=== PATIENT | female | born 1980 | race African-American/Black ===

== ENCOUNTER 2017-06-25 13:44 | Inpatient (IN) | payer BC ==
[~2017-06-25] VITALS: Ht 160 cm; Wt 66.7 kg
[2017-06-25] MEDS ORDERED: ONDANSETRON PF 4 MG/2 ML VIAL. IV ONE (14:15)
[2017-06-25] MEDS ORDERED: FAMOTIDINE 20 MG/2 ML VIAL IVP ONE (14:15)
[2017-06-25] MEDS ORDERED: IV NORMAL SALINE 1000ML BAG 1,000 ML IV ONE ×2 (14:15→15:15)
[2017-06-25] MEDS ORDERED: ACETAMINOPHEN 500 MG TABLET PO ONE ×2 (14:30→15:00)
[2017-06-25 14:38] LABS: BILIRUBIN,URINE SMALL (NEG); GLUCOSE,URINE NEGATIVE (NEG); NITRITE,URINE NEGATIVE (NEG); PROTEIN,URINE >=300 mg/dL (NEG-TRACE)
[2017-06-25 14:46] LABS: BASO % 0 % (0-3); EOS % 0 % (0-3); HEMATOCRIT 41.3 % (36.0-47.0); HEMOGLOBIN 13.7 g/dL (12.0-15.5); LYMPH # 1.1 x10^3/uL (1.0-4.8); LYMPH % 8 % (24-48); MEAN CORPUSCULAR HEMOGLOBIN 27 pg (25-35); MEAN CORPUSCULAR HGB CONC 33 g/dL (31-37); MEAN CORPUSCULAR VOLUME 82 fL (79-100); MONO % 13 % (0-9); NEUT % 79 % (31-73); PLATELET COUNT 255 x10^3/uL (140-400); RED BLOOD COUNT 5.04 x10^6/uL (3.50-5.40); RED CELL DISTRIBUTION WIDTH 13.9 % (11.5-14.5); WHITE BLOOD COUNT 14.1 x10^3/uL (4.0-11.0)
[2017-06-25 14:51] LABS: BACTERIA,URINE MANY /HPF (0-FEW); RBC,URINE RARE /HPF (0-2); SQUAMOUS EPITHELIAL CELL,UR MANY /LPF
[2017-06-25 14:58] LABS: OBC FLU VALID
[2017-06-25 14:59] LABS: ALBUMIN 3.5 g/dL (3.4-5.0); ALBUMIN/GLOBULIN RATIO 0.7 (1.0-1.7); CALCIUM 8.7 mg/dL (8.5-10.1); CREATININE 1.2 mg/dL (0.6-1.0); GFR 60.8; TOTAL BILIRUBIN 0.6 mg/dL (0.2-1.0); TOTAL PROTEIN 8.6 g/dL (6.4-8.2)
[2017-06-25 15:00] LABS: POTASSIUM 2.9 mmol/L (3.5-5.1)
[2017-06-25] MEDS ORDERED: IBUPROFEN 800 MG TABLET. PO ONE (15:00)
[2017-06-25 15:12] LABS: PLT ESTIMATE ADEQUATE (ADEQUATE); TOXIC GRANULATION SLIGHT; TOXIC VACUOLATION MOD
--- NOTE | 2017-06-25 15:14 | PHYS DOC ---
Past Medical History Past Medical History: No Pertinent History Past Surgical History: , Other Additional Past Surgical Histo: BREAST BIOPSY Alcohol Use: None Drug Use: None Adult General Chief Complaint Chief Complaint: GENERALIZED BODY ACHES HPI HPI Patient is a 37 year old female with no significant medical history who presents today complaining of generalized body aches, patient states she's had diarrhea for 3 days, generalized lower abdominal pain, and vomited once 3 days ago. She is also complaining of subjective fevers. Review of Systems Review of Systems Constitutional: Fever and generalized body aches Eyes: Denies change in visual acuity, redness, or eye pain [] HENT: Denies nasal congestion or sore throat [] Respiratory: Denies cough or shortness of breath [] Cardiovascular: No additional information not addressed in HPI [] GI: Generalized lower abdominal pain nausea vomiting and diarrhea : Denies dysuria or hematuria [] Musculoskeletal: Denies back pain or joint pain [] Integument: Denies rash or skin lesions [] Neurologic: Denies headache, focal weakness or sensory changes [] All other systems were reviewed and found to be within normal limits, except as documented in this note. Current Medications Current Medications Current Medications Medications (Trade) Dose Ordered Sig/Ishaan Start Time Stop Time Status Last Admin Dose Admin Acetaminophen (Tylenol) 1,000 mg 1X ONCE 06/25/17 15:00 06/25/17 15:01 DC Famotidine (Pepcid Vial) 20 mg 1X ONCE 06/25/17 14:15 06/25/17 14:32 DC 06/25/17 14:37 20 MG Fentanyl Citrate (Fentanyl 2ml Vial) 50 mcg PRN Q30MIN PRN 06/25/17 19:30 06/25/17 19:36 50 MCG Ibuprofen (Motrin) 800 mg 1X ONCE 06/25/17 15:00 06/25/17 15:01 DC 06/25/17 15:00 800 MG Info (Do NOT chart on this entry -- for MONITORING) 1 each PRN DAILY PRN 06/25/17 15:15 06/27/17 15:14 Iohexol (Omnipaque 300 Mg/ml) 75 ml 1X ONCE 06/25/17 15:15 06/25/17 15:16 DC 06/25/17 15:58 75 ML Lidocaine HCl (Xylocaine-Mpf 1% Vial) 2 ml STK-MED ONCE 06/25/17 16:25 06/25/17 16:26 DC Morphine Sulfate 2 mg PRN Q2HR PRN 06/25/17 20:15 06/26/17 20:14 Ondansetron HCl (Zofran) 4 mg PRN Q8HRS PRN 06/25/17 20:15 06/26/17 20:14 Piperacillin Sod/ Tazobactam Sod (Zosyn Per Pharmacy) 1 each PRN DAILY PRN 06/25/17 20:15 UNV Piperacillin Sod/ Tazobactam Sod (Zosyn) 3.375 gm ONCE ONCE 06/25/17 20:30 06/25/17 20:31 DC Potassium Chloride (KCl Oral Soln) 40 meq 1X ONCE 06/25/17 15:15 06/25/17 15:16 DC 06/25/17 15:33 40 MEQ Sodium Chloride 1,000 ml @ 100 mls/hr Q10H 06/25/17 20:13 06/26/17 20:12 Sodium Chloride (NORMAL SALINE FLUSH for STERILE FIELD) 10 ml STK-MED ONCE 06/25/17 16:33 06/25/17 16:34 DC Vancomycin HCl (Vanco Per Pharmacy) 1 each PRN DAILY PRN 06/25/17 20:15 UNV Vancomycin HCl 1.75 gm/Dextrose/ Sodium Chloride 500 ml @ 250 mls/hr 1X ONCE 06/25/17 20:30 06/25/17 22:29 Allergies Allergies Allergies Coded Allergies Type Severity Reaction Last Updated Verified No Known Drug Allergies 06/25/17 No Physical Exam Physical Exam Constitutional: Well developed, well nourished, ill appearing patient. HENT: Normocephalic, atraumatic, bilateral external ears normal, oropharynx moist, no oral exudates, nose normal. [] Eyes: PERRLA, EOMI, conjunctiva normal, no discharge. [] Neck: Normal range of motion, no tenderness, supple, no stridor. [] Cardiovascular:Heart rate regular rhythm, no murmur [] Lungs & Thorax: Bilateral breath sounds clear to auscultation [] Abdomen: Bowel sounds normal, soft, no tenderness, no masses, no pulsatile masses. [] Skin: Warm, dry, no erythema, no rash. [] Back: No tenderness, no CVA tenderness. [] Extremities: No tenderness, no cyanosis, no clubbing, ROM intact, no edema. [] Neurologic: Alert and oriented X 3, normal motor function, normal sensory function, no focal deficits noted. [] Psychologic: Affect normal, judgement normal, mood normal. [] Current Patient Data Vital Signs Vital Signs Date Time Temp Pulse Resp B/P (MAP) Pulse Ox O2 Delivery O2 Flow Rate FiO2 06/25/17 19:36 17 100 Room Air 06/25/17 19:34 70 111/59 (76) 06/25/17 18:30 98.1 98.1 Lab Values Laboratory Tests Test 06/25/17 14:00 06/25/17 14:20 06/25/17 14:28 06/25/17 14:35 Urine Collection Type Unknown Urine Color [place] Urine Clarity Cloudy Urine pH 6.0 Urine Specific [place] >=1.030 Urine Protein >=300 mg/dL (NEG-TRACE) Urine Glucose (UA) Negative mg/dL (NEG) Urine Ketones (Stick) >=80 mg/dL (NEG) Urine Blood Moderate (NEG) Urine Nitrite Negative (NEG) Urine Bilirubin Small (NEG) Urine Urobilinogen Dipstick 2.0 mg/dL (0.2 mg/dL) Urine Leukocyte Esterase Small (NEG) Urine RBC Rare /HPF (0-2) Urine WBC 11-20 /HPF (0-4) Urine Squamous Epithelial Cells Many /LPF Urine Bacteria Many /HPF (0-FEW) Urine Mucus Marked /LPF Influenza Type A Antigen Negative (NEGATIVE) Influenza Type B Antigen Negative (NEGATIVE) POC Urine HCG, Qualitative Hcg negative (Negative) White Blood Count 14.1 x10^3/uL (4.0-11.0) H Red Blood Count 5.04 x10^6/uL (3.50-5.40) Hemoglobin 13.7 g/dL (12.0-15.5) Hematocrit 41.3 % (36.0-47.0) Mean Corpuscular Volume 82 fL (79-100) Mean Corpuscular Hemoglobin 27 pg (25-35) Mean Corpuscular Hemoglobin Concent 33 g/dL (31-37) Red Cell Distribution Width 13.9 % (11.5-14.5) Platelet Count 255 x10^3/uL (140-400) Neutrophils (%) (Auto) 79 % (31-73) H Lymphocytes (%) (Auto) 8 % (24-48) L Monocytes (%) (Auto) 13 % (0-9) H Eosinophils (%) (Auto) 0 % (0-3) Basophils (%) (Auto) 0 % (0-3) Neutrophils # (Auto) 11.1 x10^3uL (1.8-7.7) H Lymphocytes # (Auto) 1.1 x10^3/uL (1.0-4.8) Monocytes # (Auto) 1.9 x10^3/uL (0.0-1.1) H Eosinophils # (Auto) 0.0 x10^3/uL (0.0-0.7) Basophils # (Auto) 0.0 x10^3/uL (0.0-0.2) Segmented Neutrophils % 58 % (35-66) Band Neutrophils % 21 % (0-9) H Lymphocytes % 9 % (24-48) L Atypical Lymphocytes % (Manual) 2 % (0-0) H Monocytes % 10 % (0-10) Toxic Granulation Slight Toxic Vacuolation Mod Platelet Estimate Adequate (ADEQUATE) Sodium Level 133 mmol/L (136-145) L Potassium Level 2.9 mmol/L (3.5-5.1) *L Chloride Level 96 mmol/L (98-107) L Carbon Dioxide Level 25 mmol/L (21-32) Anion Gap 12 (6-14) Blood Urea Nitrogen 7 mg/dL (7-20) Creatinine 1.2 mg/dL (0.6-1.0) H Estimated GFR (Cockcroft-Gault) 60.8 BUN/Creatinine Ratio 6 (6-20) Glucose Level 144 mg/dL (70-99) H Lactic Acid Level 1.2 mmol/L (0.4-2.0) Calcium Level 8.7 mg/dL (8.5-10.1) Total Bilirubin 0.6 mg/dL (0.2-1.0) Aspartate Amino Transferase (AST) 69 U/L (15-37) H Alanine Aminotransferase (ALT) 76 U/L (14-59) H Alkaline Phosphatase 56 U/L (46-116) Total Protein 8.6 g/dL (6.4-8.2) H Albumin 3.5 g/dL (3.4-5.0) Albumin/Globulin Ratio 0.7 (1.0-1.7) L Lipase 135 U/L (73-393) Test 06/25/17 16:30 CSF Tube Number 4 CSF Volume 1.2 CSF Color Colorless CSF Clarity Clear CSF WBC 1 CSF RBC 15 CSF Glucose 92 mg/dL (37-70) H CSF Total Protein 26.1 mg/dL (15.0-45.0) Laboratory Tests 06/25/17 14:35 Laboratory Tests 06/25/17 14:35 EKG EKG [] Radiology/Procedures Radiology/Procedures []PROCEDURE: ACUTE ABDOMEN SERIES Single view chest and supine and upright AP views of the abdomen 06/25/2017 Clinical indication: Vomiting, diarrhea and lower abdominal leg pain. Comparison: None. Findings: Cardiac and mediastinal silhouettes are unremarkable. No pleural effusion, pneumothorax or focal consolidation. There is a nonobstructive bowel gas pattern was distal colonic gas and stool. No evidence of pneumoperitoneum or portal venous gas. Impression: 1. No acute cardiopulmonary abnormality. 2. No radiographic evidence of bowel obstruction or pneumoperitoneum. DICTATED and SIGNED BY: NAYA URBAN MD DATE: 06/25/17 1508 CC: RONDA OH APRN; NO PCP; NON,STAFF ~ Course & Med Decision Making Course & Med Decision Making Pertinent Labs and Imaging studies reviewed. (See chart for details) Patient is in the ED with complaints of generalized abdominal pain, nausea vomiting body aches and subjective fevers. Temperature on arrival to the ED is 103.1 with a heart rate 125. Blood pressure 139/76. O2 sats 98% on room air. CBC with a WBC of 14.1 with a left shift. CMP with potassium of 2.9. Patient was given 40 meq potassium replacement in the ED. Patient was complaining off a headache in the ED. Considering her temperature of 103.1, consulted with Dr. Combs for possible spinal tap. 15:55 Dr. Comsb took over patient's care. Dragon Disclaimer Dragon Disclaimer This electronic medical record was generated, in whole or in part, using a voice recognition dictation system. Departure Departure Impression: Primary Impression: Hypokalemia Additional Impressions: Nausea and vomiting Diarrhea Abdominal pain Referrals: NO PCP (PCP) Lumbar Puncture Lumbar Indication: Suspected meningitis Consent: Consent was obtained Procedure: The patient was placed in the left lateral decubitus position and the appropriate landmarks were identified. The area was prepped and draped in the usual sterile fashion. Anesthesia was obtained using 1% lidocaine. A spinal needle was inserted at the L4/L5. The stylet was then replaced and the needle was withdrawn. A sterile dressing was placed over the site and the patient was placed in the supine position for 60 min after procedure. The patient tolerated the procedure well. Complications: none. Assessment/Plan Assessment/Plan 29-year-old female initially seen by our advanced practice provider Ronda signed out to me with plans to perform lumbar puncture and further evaluation. The patient arrived with generalized bodyaches fatigue fever diarrhea with vomiting and a severe headache. Upon arrival she was tachycardic and febrile. She was given IV fluids ibuprofen and acetaminophen in the emergency department. Prior to my examination the patient has had blood work which shows a leukocytosis without an obvious source. Influenza negative. Abdomen CT with IV contrast obtained. Lumbar puncture performed which was not suggestive of acute bacterial meningitis. Chest x-ray obtained along with MRI of the brain. Initially I was given order a CT scan of the head however unfortunately because the patient had artery received IV contrast we elected to do an MRI of the brain instead. 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 Chest x-ray unremarkable. MRI of the brain unremarkable. The patient was then admitted after being given IV antibiotics to follow-up on blood cultures and to monitor her in the hospital. Problems: Problem Qualifiers Additional Impressions: Nausea and vomiting Vomiting type: unspecified Vomiting Intractability: non-intractable Qualified Codes: R11.2 - Nausea with vomiting, unspecified Diarrhea Diarrhea type: unspecified type Qualified Codes: R19.7 - Diarrhea, unspecified Abdominal pain Abdominal location: generalized Qualified Codes: R10.84 - Generalized abdominal pain RONDA OH APRN Jun 25, 2017 15:14 RICK COMBS MD Jun 25, 2017 20:59
[2017-06-25] MEDS ORDERED: POTASSIUM CHLORIDE 20 MEQ/15 ML ORAL LIQUID. PO ONE (15:15)
[2017-06-25] MEDS ORDERED: CONTRAST GIVEN MC PRN (15:15)
[2017-06-25] MEDS ORDERED: IOHEXOL 300 MG/ML 100ML VIAL. IV ONE (15:15)
[2017-06-25] MEDS ORDERED: fentaNYL PF VIAL 100 MCG/2 ML VIAL IV ONE ×2 (15:30→16:15)
--- NOTE | 2017-06-25 16:22 | RAD ---
PQRS Compliance Statement: One or more of the following individualized dose reduction techniques were utilized for this examination: 1. Automated exposure control 2. Adjustment of the mA and/or kV according to patient size 3. Use of iterative reconstruction technique CT abdomen/pelvis with contrast June 25, 2017 INDICATION: Abdominal pain with diarrhea. COMPARISON: None available TECHNIQUE: Multiple axial CT images of abdomen and pelvis were obtained after the intravenous demonstration of 75 cc Omnipaque 300. Coronal and sagittal reformats are provided. FINDINGS: Lung bases are clear. Heart size is within normal limits. The liver, spleen, bilateral adrenal glands, pancreas and gallbladder are within normal limits. Abdominal aorta is normal in course and caliber. There is no pathologically enlarged lymph nodes in the abdomen or pelvis. There is no free fluid or free intraperitoneal air. Kidneys enhance symmetrically. There is no hydronephrosis. No suspicious renal mass. No renal calculi are identified. Small bowel appears mildly prominent and fluid-filled. No significant circumferential wall thickening. No pericolonic inflammatory changes are identified. A normal appendix is visualized. No inflammatory changes are identified in the right lower quadrant. Distal colon is decompressed. Stomach is normal in appearance. No suspicious adnexal masses are identified. Uterus is within normal limits. Follicular changes are identified in the ovaries. Urinary bladder is within normal limits given degree of distention. No suspicious osseous abnormalities are identified. IMPRESSION: Mild distention of small bowel loops which appear predominantly fluid-filled. Findings may be seen in the setting of an enteritis. Proximal colon appears fluid-filled as well. No definite surrounding inflammatory changes are identified. No evidence for bowel obstruction. Electronically signed by: Candice Carrasquillo MD (06/25/2017 4:19 PM) [facility]
[2017-06-25] MEDS ORDERED: LIDOCAINE 1% PF 2 ML VIAL. ONE (16:25)
[2017-06-25] MEDS ORDERED: 0.9 % SOD CHL for STERILE FIELD 10 ML DISP.SYRIN. ONE (16:33)
[2017-06-25 17:06] LABS: CSF PROTEIN 26.1 mg/dL (15.0-45.0)
[2017-06-25 17:40] LABS: CSF CLARITY CLEAR; CSF COLOR COLORLESS
--- NOTE | 2017-06-25 19:34 | EKG ---
[facility] [address] [place] [address] Test Date: 2017-06-25 Test Time: 18:42:57 Pat Name: RADHA DUMONT Department: Room: Gender: F Cotton Baler: : 1980 Requested By: RICK JENNINGS Order Number: [id number] Reading MD: Measurements Intervals [place] Rate: 74 P: 48 DC: 156 QRS: 23 QRSD: 76 T: 15 QT: 398 QTc: 447 Interpretive Statements SINUS RHYTHM QRS(T) CONTOUR ABNORMALITY CONSIDER ANTEROLATERAL MYOCARDIAL DAMAGE POSSIBLY ABNORMAL ECG RI6.01 No previous ECG available for comparison
[2017-06-25] MEDS: fentaNYL PF VIAL 100 MCG/2 ML VIAL IV PRN ×2 (19:36→23:02)
[2017-06-25] MEDS ORDERED: PIP/TAZO PER PHARMACY MC PRN (20:15)
[2017-06-25] MEDS ORDERED: ONDANSETRON PF 4 MG/2 ML VIAL. IV PRN (20:15)
[2017-06-25] MEDS ORDERED: PIPERACILLIN/TAZO IV Push 3.375 GM VIAL. IVP ONE (20:30)
[2017-06-25] MEDS ORDERED: VANCOMYCIN 1.75 GM in IV DEXTROSE 5 %-0.2 % NACL 500 ML IV ONE (20:30)
--- NOTE | 2017-06-25 20:34 | RAD ---
MRI brain without contrast 06/25/2017 CLINICAL INDICATION: Headache and fever, body aches. COMPARISON: None. TECHNIQUE: Multisequence multiplanar MR imaging of the brain was performed without contrast. FINDINGS: Ventricles and subarachnoid spaces are normal in size and configuration for age. No midline shift. No acute intracranial hemorrhage. The midline structures are intact. No suspicious brain parenchymal abnormality. Diffusion-weighted images are not indicative of acute or recent infarct. The central intracranial flow voids are present. The globes and orbits are unremarkable. IMPRESSION: Unremarkable noncontrast MRI brain. Electronically signed by: Jose A Velazquez MD (06/25/2017 8:30 PM) [facility]
[2017-06-25] MEDS: VANCOMYCIN PER PHARMACY MC PRN (21:03)
[2017-06-25] MEDS: IV NORMAL SALINE 1000ML BAG 1,000 ML IV SCH (21:24)
[2017-06-25 23:00] VITALS: BP_SYST 103; BP_SYST 104; BP_DIAS 68; BP_DIAS 70
[2017-06-26] MEDS: fentaNYL PF VIAL 100 MCG/2 ML VIAL IV PRN (00:08)
[2017-06-26] MEDS: ZOLPIDEM 5 MG TABLET. PO PRN (01:26)
[2017-06-26] MEDS: MORPHINE SULFATE 2 MG/ML DISP.SYRIN. IV PRN ×2 (01:26→05:17)
[2017-06-26 03:00] VITALS: BP 101/61
[2017-06-26] MEDS: PIPERACILLIN/TAZO IV Push 3.375 GM VIAL. IVP SCH ×2 (05:15→14:26)
[2017-06-26 05:16] LABS: BASO % 0 % (0-3); EOS % 0 % (0-3); HEMATOCRIT 33.4 % (36.0-47.0); HEMOGLOBIN 11.4 g/dL (12.0-15.5); LYMPH # 1.6 x10^3/uL (1.0-4.8); LYMPH % 15 % (24-48); MEAN CORPUSCULAR HEMOGLOBIN 28 pg (25-35); MEAN CORPUSCULAR HGB CONC 34 g/dL (31-37); MEAN CORPUSCULAR VOLUME 82 fL (79-100); MONO % 17 % (0-9); NEUT % 68 % (31-73); PLATELET COUNT 201 x10^3/uL (140-400); RED BLOOD COUNT 4.08 x10^6/uL (3.50-5.40); RED CELL DISTRIBUTION WIDTH 14.4 % (11.5-14.5); WHITE BLOOD COUNT 10.5 x10^3/uL (4.0-11.0)
[2017-06-26 05:40] LABS: CREATININE 0.8 mg/dL (0.6-1.0); GFR 97.1; POTASSIUM 3.7 mmol/L (3.5-5.1)
[2017-06-26 07:00] VITALS: BP 98/54
--- NOTE | 2017-06-26 08:25 | PDOC1 ---
History and Physical Date of Admission Date of Admission DATE: 06/26/17 TIME: 08:19 Identification/Chief Complaint Chief Complaint fever, Problems: Source Source: Chart review, Patient History of Present Illness History of Present Illness Ms. Lee, is a 37 year old female with no significant medical history admitted from ER due to leukocytosis and impressive fever 103. She had complained of generalized body aches, improved this AM she has bitemporal headache, and headache and back pain last night, LP was done , looks clear. She previously had diarrhea for 3 days, with some abd pain and poor PO intake, that seems improved. She is tired this AM, has headache but feels better Past Medical History Cardiovascular: No pertinent hx Pulmonary: No pertinent hx GI: No pertinent hx Heme/Onc: No pertinent hx Hepatobiliary: No pertinent hx Psych: No pertinent hx Rheumatologic: No pertinent hx Family History Family History: Cancer Family History: Parent Social History Smoke: No ALCOHOL: none Drugs: None Current Problem List Problem List Problems Medical Problems: (1) Abdominal pain Status: Acute (2) Diarrhea Status: Acute (3) Hypokalemia Status: Acute (4) Nausea and vomiting Status: Acute Problems: Current Medications Current Medications Current Medications Sodium Chloride 1,000 ml @ 1,000 mls/hr 1X ONCE IV Last administered on 06/25 14:38; Start 06/25/17 at 14:15; Stop 06/25/17 at 15:14; Status DC Famotidine (Pepcid Vial) 20 mg 1X ONCE IVP Last administered on 06/25/17 14: 37; Start 06/25/17 at 14:15; Stop 06/25/17 at 14:32; Status DC Ondansetron HCl (Zofran) 4 mg 1X ONCE IV Last administered on 06/25/17 14:37 ; Start 06/25/17 at 14:15; Stop 06/25/17 at 14:32; Status DC Acetaminophen (Tylenol) 500 mg 1X ONCE PO Last administered on 06/25/17 14: 37; Start 06/25/17 at 14:30; Stop 06/25/17 at 14:32; Status DC Acetaminophen (Tylenol) 1,000 mg 1X ONCE PO ; Start 06/25/17 at 15:00; Stop 06/25/17 at 15:01; Status DC Ibuprofen (Motrin) 800 mg 1X ONCE PO Last administered on 06/25/17 15:00; Start 06/25/17 at 15:00; Stop 06/25/17 at 15:01; Status DC Iohexol (Omnipaque 300 Mg/ml) 75 ml 1X ONCE IV Last administered on 15:58; Start 06/25/17 at 15:15; Stop 06/25/17 at 15:16; Status DC Info (Do NOT chart on this entry -- for MONITORING) 1 each PRN DAILY PRN MC SEE COMMENTS; Start 06/25/17 at 15:15; Stop 06/27/17 at 15:14 Potassium Chloride (KCl Oral Soln) 40 meq 1X ONCE PO Last administered on 15:33; Start 06/25/17 at 15:15; Stop 06/25/17 at 15:16; Status DC Sodium Chloride 1,000 ml @ 1,000 mls/hr 1X ONCE IV Last administered on 06/25 18:20; Start 06/25/17 at 15:15; Stop 06/25/17 at 16:14; Status DC Fentanyl Citrate (Fentanyl 2ml Vial) 50 mcg 1X ONCE IV Last administered on 15:34; Start 06/25/17 at 15:30; Stop 06/25/17 at 15:31; Status DC Fentanyl Citrate (Fentanyl 2ml Vial) 50 mcg 1X ONCE IV Last administered on 16:16; Start 06/25/17 at 16:15; Stop 06/25/17 at 16:16; Status DC Lidocaine HCl (Xylocaine-Mpf 1% Vial) 2 ml STK-MED ONCE .ROUTE ; Start at 16:25; Stop 06/25/17 at 16:26; Status DC Sodium Chloride (NORMAL SALINE FLUSH for STERILE FIELD) 10 ml STK-MED ONCE .ROUTE ; Start 06/25/17 at 16:33; Stop 06/25/17 at 16:34; Status DC Fentanyl Citrate (Fentanyl 2ml Vial) 50 mcg PRN Q30MIN PRN IV SEVERE PAIN Last administered on 06/26/17 00:08; Start 06/25/17 at 19:30; Stop 06/26/17 at 00 :08; Status DC Piperacillin Sod/ Tazobactam Sod (Zosyn Per Pharmacy) 1 each PRN DAILY PRN MC SEE COMMENTS; Start 06/25/17 at 20:15 Vancomycin HCl (Vanco Per Pharmacy) 1 each PRN DAILY PRN MC SEE COMMENTS Last administered on 06/25/17 21:03; Start 06/25/17 at 20:15 Ondansetron HCl (Zofran) 4 mg PRN Q8HRS PRN IV NAUSEA/VOMITING; Start at 20:15; Stop 06/26/17 at 20:14 Morphine Sulfate 2 mg PRN Q2HR PRN IV PAIN Last administered on 06/26/17 05: 17; Start 06/25/17 at 20:15; Stop 06/26/17 at 20:14 Sodium Chloride 1,000 ml @ 100 mls/hr Q10H IV Last administered on 06/25/17 21:24; Start 06/25/17 at 20:13; Stop 06/26/17 at 20:12 Vancomycin HCl 1.75 gm/Dextrose/ Sodium Chloride 500 ml @ 250 mls/hr 1X ONCE IV Last administered on 06/25/17 21:26; Start 06/25/17 at 20:30; Stop 06/25 at 22:29; Status DC Piperacillin Sod/ Tazobactam Sod (Zosyn) 3.375 gm ONCE ONCE IVP Last administered on 06/25/17 21:22; Start 06/25/17 at 20:30; Stop 06/25/17 at 20 :31; Status DC Piperacillin Sod/ Tazobactam Sod (Zosyn) 3.375 gm Q6HRS IVP Last administered on 06/26/17 05:15; Start 06/26/17 at 06:00 Vancomycin HCl 1 gm/Sodium Chloride 500 ml @ 500 mls/hr Q24H IV ; Start at 21:00 Vancomycin HCl 1 each 1X ONCE MC ; Start 06/27/17 at 20:30; Stop 06/27/17 at 20:31 Potassium Chloride (Klor-Con) 20 meq DAILYWBKFT PO ; Start 06/26/17 at 08:00 Zolpidem Tartrate (Ambien) 5 mg PRN QHS PRN PO INSOMNIA Last administered on 01:26; Start 06/26/17 at 01:00 Allergies Allergies: Coded Allergies: No Known Drug Allergies (Unverified , 06/25/17) ROS General: YES: Chills, Night Sweats, Fatigue, Appetite, No: Malaise, Other PSYCHOLOGICAL ROS: No: Anxiety, Behavioral Disorder, Concentration difficultie , Decreased libido, Depression, Disorientation, Hallucinations, Hostility, Irritablity, Memory difficulties, Mood Swings, Obsessive thoughts, Physical abuse, Sexual abuse, Sleep disturbances, Suicidal ideation, Other Eyes: No Blurry vision, No Decreased vision, No Double vision, No Dry eyes, No Excessive tearing, No Eye Pain, No Itchy Eyes, No Loss of vision, No Photophobia , No Scotomata, No Uses contacts, No Uses glasses, No Other HEENT: No: Heacaches, Visual Changes, Hearing change, Nasal congestion, Nasal discharge, Oral lesions, Sinus pain, Sore Throat, Epistaxis, Sneezing, Snoring, Tinnitus, Vertigo, Vocal changes, Other Respiratory: No: Cough, Hemoptysis, Orthopnea, Pleuritic Pain, Shortness of breath, SOB with excertion, Sputum Changes, Stridor, Tachypnea, Wheezing, Other Cardiovascular: No Chest Pain, No Palpitations, No Orthopnea, No Paroxysmal Noc. Dyspnea, No Edema, No Lt Headedness, No Other Genitourinary: No Dysuria, No Frequency, No Incontinence, No Hematuria, No Retention, No Discharge, No Urgency, No Pain, No Flank Pain, No Other, No , No , No , No , No , No , No Musculoskeletal: No Gait Disturbance, No Joint Pain, No Joint Stiffness, No Joint Swelling, No Muscle Pain, No Muscular Weakness, No Pain In:, No Swelling In:, No Other Neurological: No Behavorial Changes, No Bowel/Bladder ControlChng, No Confusion , No Dizziness, No Gait Disturbance, No Headaches, No Impaired Coord/balance, No Memory Loss, No Numbness/Tingling, No Seizures, No Speech Problems, No Tremors, No Visual Changes, No Weakness, No Other Skin: No Dry Skin, No Eczema, No Hair Changes, No Lumps, No Mole Changes, No Mottling, No Nail Changes, No Pruritus, No Rash, No Skin Lesion Changes, No Other, No Acne Physical Exam General: Alert, Oriented X3, Cooperative, No acute distress HEENT: Atraumatic, PERRLA Lungs: Clear to auscultation, Normal air movement Heart: S1S2, no gallops, no murmurs Abdomen: Normal bowel sounds, Soft Rectal Exam: not examined Extremities: No clubbing, No edema Skin: No rashes, No significant lesion Neuro: Normal gait, Normal speech, Normal tone Psych/Mental Status: Mood NL Vitals Vitals Vital Signs Date Time Temp Pulse Resp B/P (MAP) Pulse Ox O2 Delivery O2 Flow Rate FiO2 06/26/17 05:47 97 Room Air 06/26/17 03:00 97.6 64 16 101/61 (74) 97.6 Labs Labs Laboratory Tests Test 06/25/17 14:00 06/25/17 14:20 06/25/17 14:28 06/25/17 14:35 Urine Collection Type Unknown Urine Color [place] Urine Clarity Cloudy Urine pH 6.0 Urine Specific [place] >=1.030 Urine Protein >=300 mg/dL (NEG-TRACE) Urine Glucose (UA) Negative mg/dL (NEG) Urine Ketones (Stick) >=80 mg/dL (NEG) Urine Blood Moderate (NEG) Urine Nitrite Negative (NEG) Urine Bilirubin Small (NEG) Urine Urobilinogen Dipstick 2.0 mg/dL (0.2 mg/dL) Urine Leukocyte Esterase Small (NEG) Urine RBC Rare /HPF (0-2) Urine WBC 11-20 /HPF (0-4) Urine Squamous Epithelial Cells Many /LPF Urine Bacteria Many /HPF (0-FEW) Urine Mucus Marked /LPF Influenza Type A Antigen Negative (NEGATIVE) Influenza Type B Antigen Negative (NEGATIVE) Bedside Urine HCG, Qualitative Hcg negative (Negative) White Blood Count 14.1 x10^3/uL (4.0-11.0) Red Blood Count 5.04 x10^6/uL (3.50-5.40) Hemoglobin 13.7 g/dL (12.0-15.5) Hematocrit 41.3 % (36.0-47.0) Mean Corpuscular Volume 82 fL (79-100) Mean Corpuscular Hemoglobin 27 pg (25-35) Mean Corpuscular Hemoglobin Concent 33 g/dL (31-37) Red Cell Distribution Width 13.9 % (11.5-14.5) Platelet Count 255 x10^3/uL (140-400) Neutrophils (%) (Auto) 79 % (31-73) Lymphocytes (%) (Auto) 8 % (24-48) Monocytes (%) (Auto) 13 % (0-9) Eosinophils (%) (Auto) 0 % (0-3) Basophils (%) (Auto) 0 % (0-3) Neutrophils # (Auto) 11.1 x10^3uL (1.8-7.7) Lymphocytes # (Auto) 1.1 x10^3/uL (1.0-4.8) Monocytes # (Auto) 1.9 x10^3/uL (0.0-1.1) Eosinophils # (Auto) 0.0 x10^3/uL (0.0-0.7) Basophils # (Auto) 0.0 x10^3/uL (0.0-0.2) Segmented Neutrophils % 58 % (35-66) Band Neutrophils % 21 % (0-9) Lymphocytes % 9 % (24-48) Atypical Lymphocytes % (Manual) 2 % (0-0) Monocytes % 10 % (0-10) Toxic Granulation Slight Toxic Vacuolation Mod Platelet Estimate Adequate (ADEQUATE) Sodium Level 133 mmol/L (136-145) Potassium Level 2.9 mmol/L (3.5-5.1) Chloride Level 96 mmol/L (98-107) Carbon Dioxide Level 25 mmol/L (21-32) Anion Gap 12 (6-14) Blood Urea Nitrogen 7 mg/dL (7-20) Creatinine 1.2 mg/dL (0.6-1.0) Estimated GFR (Cockcroft-Gault) 60.8 BUN/Creatinine Ratio 6 (6-20) Glucose Level 144 mg/dL (70-99) Lactic Acid Level 1.2 mmol/L (0.4-2.0) Calcium Level 8.7 mg/dL (8.5-10.1) Total Bilirubin 0.6 mg/dL (0.2-1.0) Aspartate Amino Transf (AST/SGOT) 69 U/L (15-37) Alanine Aminotransferase (ALT/SGPT) 76 U/L (14-59) Alkaline Phosphatase 56 U/L (46-116) Total Protein 8.6 g/dL (6.4-8.2) Albumin 3.5 g/dL (3.4-5.0) Albumin/Globulin Ratio 0.7 (1.0-1.7) Lipase 135 U/L (73-393) Test 06/25/17 16:30 06/25/17 22:30 06/26/17 04:55 CSF Tube Number 4 CSF Volume 1.2 CSF Color Colorless CSF Clarity Clear CSF WBC 1 CSF RBC 15 CSF Glucose 92 mg/dL (37-70) CSF Total Protein 26.1 mg/dL (15.0-45.0) Lactic Acid Level 1.0 mmol/L (0.4-2.0) White Blood Count 10.5 x10^3/uL (4.0-11.0) Red Blood Count 4.08 x10^6/uL (3.50-5.40) Hemoglobin 11.4 g/dL (12.0-15.5) Hematocrit 33.4 % (36.0-47.0) Mean Corpuscular Volume 82 fL (79-100) Mean Corpuscular Hemoglobin 28 pg (25-35) Mean Corpuscular Hemoglobin Concent 34 g/dL (31-37) Red Cell Distribution Width 14.4 % (11.5-14.5) Platelet Count 201 x10^3/uL (140-400) Neutrophils (%) (Auto) 68 % (31-73) Lymphocytes (%) (Auto) 15 % (24-48) Monocytes (%) (Auto) 17 % (0-9) Eosinophils (%) (Auto) 0 % (0-3) Basophils (%) (Auto) 0 % (0-3) Neutrophils # (Auto) 7.1 x10^3uL (1.8-7.7) Lymphocytes # (Auto) 1.6 x10^3/uL (1.0-4.8) Monocytes # (Auto) 1.8 x10^3/uL (0.0-1.1) Eosinophils # (Auto) 0.0 x10^3/uL (0.0-0.7) Basophils # (Auto) 0.0 x10^3/uL (0.0-0.2) Sodium Level 140 mmol/L (136-145) Potassium Level 3.7 mmol/L (3.5-5.1) Chloride Level 106 mmol/L (98-107) Carbon Dioxide Level 26 mmol/L (21-32) Anion Gap 8 (6-14) Blood Urea Nitrogen 5 mg/dL (7-20) Creatinine 0.8 mg/dL (0.6-1.0) Estimated GFR (Cockcroft-Gault) 97.1 Glucose Level 94 mg/dL (70-99) Calcium Level 7.0 mg/dL (8.5-10.1) Laboratory Tests Test 06/25/17 14:00 06/25/17 14:20 06/25/17 14:28 06/25/17 14:35 Urine Collection Type Unknown Urine Color [place] Urine Clarity Cloudy Urine pH 6.0 Urine Specific [place] >=1.030 Urine Protein >=300 mg/dL (NEG-TRACE) Urine Glucose (UA) Negative mg/dL (NEG) Urine Ketones (Stick) >=80 mg/dL (NEG) Urine Blood Moderate (NEG) Urine Nitrite Negative (NEG) Urine Bilirubin Small (NEG) Urine Urobilinogen Dipstick 2.0 mg/dL (0.2 mg/dL) Urine Leukocyte Esterase Small (NEG) Urine RBC Rare /HPF (0-2) Urine WBC 11-20 /HPF (0-4) Urine Squamous Epithelial Cells Many /LPF Urine Bacteria Many /HPF (0-FEW) Urine Mucus Marked /LPF Influenza Type A Antigen Negative (NEGATIVE) Influenza Type B Antigen Negative (NEGATIVE) Bedside Urine HCG, Qualitative Hcg negative (Negative) White Blood Count 14.1 x10^3/uL (4.0-11.0) Red Blood Count 5.04 x10^6/uL (3.50-5.40) Hemoglobin 13.7 g/dL (12.0-15.5) Hematocrit 41.3 % (36.0-47.0) Mean Corpuscular Volume 82 fL (79-100) Mean Corpuscular Hemoglobin 27 pg (25-35) Mean Corpuscular Hemoglobin Concent 33 g/dL (31-37) Red Cell Distribution Width 13.9 % (11.5-14.5) Platelet Count 255 x10^3/uL (140-400) Neutrophils (%) (Auto) 79 % (31-73) Lymphocytes (%) (Auto) 8 % (24-48) Monocytes (%) (Auto) 13 % (0-9) Eosinophils (%) (Auto) 0 % (0-3) Basophils (%) (Auto) 0 % (0-3) Neutrophils # (Auto) 11.1 x10^3uL (1.8-7.7) Lymphocytes # (Auto) 1.1 x10^3/uL (1.0-4.8) Monocytes # (Auto) 1.9 x10^3/uL (0.0-1.1) Eosinophils # (Auto) 0.0 x10^3/uL (0.0-0.7) Basophils # (Auto) 0.0 x10^3/uL (0.0-0.2) Segmented Neutrophils % 58 % (35-66) Band Neutrophils % 21 % (0-9) Lymphocytes % 9 % (24-48) Atypical Lymphocytes % (Manual) 2 % (0-0) Monocytes % 10 % (0-10) Toxic Granulation Slight Toxic Vacuolation Mod Platelet Estimate Adequate (ADEQUATE) Sodium Level 133 mmol/L (136-145) Potassium Level 2.9 mmol/L (3.5-5.1) Chloride Level 96 mmol/L (98-107) Carbon Dioxide Level 25 mmol/L (21-32) Anion Gap 12 (6-14) Blood Urea Nitrogen 7 mg/dL (7-20) Creatinine 1.2 mg/dL (0.6-1.0) Estimated GFR (Cockcroft-Gault) 60.8 BUN/Creatinine Ratio 6 (6-20) Glucose Level 144 mg/dL (70-99) Lactic Acid Level 1.2 mmol/L (0.4-2.0) Calcium Level 8.7 mg/dL (8.5-10.1) Total Bilirubin 0.6 mg/dL (0.2-1.0) Aspartate Amino Transf (AST/SGOT) 69 U/L (15-37) Alanine Aminotransferase (ALT/SGPT) 76 U/L (14-59) Alkaline Phosphatase 56 U/L (46-116) Total Protein 8.6 g/dL (6.4-8.2) Albumin 3.5 g/dL (3.4-5.0) Albumin/Globulin Ratio 0.7 (1.0-1.7) Lipase 135 U/L (73-393) Test 06/25/17 16:30 06/25/17 22:30 06/26/17 04:55 CSF Tube Number 4 CSF Volume 1.2 CSF Color Colorless CSF Clarity Clear CSF WBC 1 CSF RBC 15 CSF Glucose 92 mg/dL (37-70) CSF Total Protein 26.1 mg/dL (15.0-45.0) Lactic Acid Level 1.0 mmol/L (0.4-2.0) White Blood Count 10.5 x10^3/uL (4.0-11.0) Red Blood Count 4.08 x10^6/uL (3.50-5.40) Hemoglobin 11.4 g/dL (12.0-15.5) Hematocrit 33.4 % (36.0-47.0) Mean Corpuscular Volume 82 fL (79-100) Mean Corpuscular Hemoglobin 28 pg (25-35) Mean Corpuscular Hemoglobin Concent 34 g/dL (31-37) Red Cell Distribution Width 14.4 % (11.5-14.5) Platelet Count 201 x10^3/uL (140-400) Neutrophils (%) (Auto) 68 % (31-73) Lymphocytes (%) (Auto) 15 % (24-48) Monocytes (%) (Auto) 17 % (0-9) Eosinophils (%) (Auto) 0 % (0-3) Basophils (%) (Auto) 0 % (0-3) Neutrophils # (Auto) 7.1 x10^3uL (1.8-7.7) Lymphocytes # (Auto) 1.6 x10^3/uL (1.0-4.8) Monocytes # (Auto) 1.8 x10^3/uL (0.0-1.1) Eosinophils # (Auto) 0.0 x10^3/uL (0.0-0.7) Basophils # (Auto) 0.0 x10^3/uL (0.0-0.2) Sodium Level 140 mmol/L (136-145) Potassium Level 3.7 mmol/L (3.5-5.1) Chloride Level 106 mmol/L (98-107) Carbon Dioxide Level 26 mmol/L (21-32) Anion Gap 8 (6-14) Blood Urea Nitrogen 5 mg/dL (7-20) Creatinine 0.8 mg/dL (0.6-1.0) Estimated GFR (Cockcroft-Gault) 97.1 Glucose Level 94 mg/dL (70-99) Calcium Level 7.0 mg/dL (8.5-10.1) VTE Prophylaxis Ordered VTE Prophylaxis Devices: No VTE Pharmacological Prophylaxi: Yes Assessment/Plan Assessment/Plan sepsis, NOS fever, leukocytosis, broad spectrum abx started, ID consult, blood cx pending, she feels much better this AM, vitals and white count have improved SANTIAGO PATEL MD Jun 26, 2017 08:25
[2017-06-26 08:31] LABS: ALBUMIN 2.5 g/dL (3.4-5.0); DIRECT BILIRUBIN 0.2 mg/dL (0.0-0.2); TOTAL BILIRUBIN 0.3 mg/dL (0.2-1.0)
--- NOTE | 2017-06-26 08:43 | RAD ---
2 view chest 06/25/2017 Clinical indication: Fever. Comparison: None. Findings: Cardiac and mediastinal silhouettes are unremarkable. No pleural effusion, pneumothorax or focal consolidation. Impression: No acute cardiopulmonary abnormality.
[2017-06-26] MEDS ORDERED: KETOROLAC 15 MG/ML VIAL. IV ONE (09:00)
[2017-06-26] MEDS: ENOXAPARIN 40 MG/0.4 ML SYRINGE. SQ SCH (10:02)
[2017-06-26] MEDS: IV NORMAL SALINE 1000ML BAG 1,000 ML IV SCH ×2 (10:03→16:13)
[2017-06-26] MEDS: POTASSIUM CHLORIDE 20 MEQ TABLET.ER. PO SCH (10:03)
[2017-06-26 11:00] VITALS: BP 110/54
[2017-06-26] MEDS: VANCOMYCIN PER PHARMACY MC PRN (11:39)
[2017-06-26] MEDS ORDERED: VANCOMYCIN IV SCH ×2 (12:00→21:00)
[2017-06-26] MEDS ORDERED: 1/2 NORMAL SALINE IV SCH ×2 (12:00→21:00)
--- NOTE | 2017-06-26 13:43 | PDOC ---
Infectious Disease Note Vital Sign Vital Signs Vital Signs Date Time Temp Pulse Resp B/P (MAP) Pulse Ox O2 Delivery O2 Flow Rate FiO2 06/26/17 11:00 97.9 66 16 110/54 (72) 95 Room Air 97.9 Labs Lab Laboratory Tests Test 06/25/17 14:00 06/25/17 14:20 06/25/17 14:28 06/25/17 14:35 Urine Collection Type Unknown Urine Color [place] Urine Clarity Cloudy Urine pH 6.0 Urine Specific [place] >=1.030 Urine Protein >=300 mg/dL (NEG-TRACE) Urine Glucose (UA) Negative mg/dL (NEG) Urine Ketones (Stick) >=80 mg/dL (NEG) Urine Blood Moderate (NEG) Urine Nitrite Negative (NEG) Urine Bilirubin Small (NEG) Urine Urobilinogen Dipstick 2.0 mg/dL (0.2 mg/dL) Urine Leukocyte Esterase Small (NEG) Urine RBC Rare /HPF (0-2) Urine WBC 11-20 /HPF (0-4) Urine Squamous Epithelial Cells Many /LPF Urine Bacteria Many /HPF (0-FEW) Urine Mucus Marked /LPF Influenza Type A Antigen Negative (NEGATIVE) Influenza Type B Antigen Negative (NEGATIVE) Bedside Urine HCG, Qualitative Hcg negative (Negative) White Blood Count 14.1 x10^3/uL (4.0-11.0) Red Blood Count 5.04 x10^6/uL (3.50-5.40) Hemoglobin 13.7 g/dL (12.0-15.5) Hematocrit 41.3 % (36.0-47.0) Mean Corpuscular Volume 82 fL (79-100) Mean Corpuscular Hemoglobin 27 pg (25-35) Mean Corpuscular Hemoglobin Concent 33 g/dL (31-37) Red Cell Distribution Width 13.9 % (11.5-14.5) Platelet Count 255 x10^3/uL (140-400) Neutrophils (%) (Auto) 79 % (31-73) Lymphocytes (%) (Auto) 8 % (24-48) Monocytes (%) (Auto) 13 % (0-9) Eosinophils (%) (Auto) 0 % (0-3) Basophils (%) (Auto) 0 % (0-3) Neutrophils # (Auto) 11.1 x10^3uL (1.8-7.7) Lymphocytes # (Auto) 1.1 x10^3/uL (1.0-4.8) Monocytes # (Auto) 1.9 x10^3/uL (0.0-1.1) Eosinophils # (Auto) 0.0 x10^3/uL (0.0-0.7) Basophils # (Auto) 0.0 x10^3/uL (0.0-0.2) Segmented Neutrophils % 58 % (35-66) Band Neutrophils % 21 % (0-9) Lymphocytes % 9 % (24-48) Atypical Lymphocytes % (Manual) 2 % (0-0) Monocytes % 10 % (0-10) Toxic Granulation Slight Toxic Vacuolation Mod Platelet Estimate Adequate (ADEQUATE) Sodium Level 133 mmol/L (136-145) Potassium Level 2.9 mmol/L (3.5-5.1) Chloride Level 96 mmol/L (98-107) Carbon Dioxide Level 25 mmol/L (21-32) Anion Gap 12 (6-14) Blood Urea Nitrogen 7 mg/dL (7-20) Creatinine 1.2 mg/dL (0.6-1.0) Estimated GFR (Cockcroft-Gault) 60.8 BUN/Creatinine Ratio 6 (6-20) Glucose Level 144 mg/dL (70-99) Lactic Acid Level 1.2 mmol/L (0.4-2.0) Calcium Level 8.7 mg/dL (8.5-10.1) Total Bilirubin 0.6 mg/dL (0.2-1.0) Aspartate Amino Transf (AST/SGOT) 69 U/L (15-37) Alanine Aminotransferase (ALT/SGPT) 76 U/L (14-59) Alkaline Phosphatase 56 U/L (46-116) Total Protein 8.6 g/dL (6.4-8.2) Albumin 3.5 g/dL (3.4-5.0) Albumin/Globulin Ratio 0.7 (1.0-1.7) Lipase 135 U/L (73-393) Test 06/25/17 16:30 06/25/17 22:30 06/26/17 04:55 CSF Tube Number 4 CSF Volume 1.2 CSF Color Colorless CSF Clarity Clear CSF WBC 1 CSF RBC 15 CSF Glucose 92 mg/dL (37-70) CSF Total Protein 26.1 mg/dL (15.0-45.0) Lactic Acid Level 1.0 mmol/L (0.4-2.0) White Blood Count 10.5 x10^3/uL (4.0-11.0) Red Blood Count 4.08 x10^6/uL (3.50-5.40) Hemoglobin 11.4 g/dL (12.0-15.5) Hematocrit 33.4 % (36.0-47.0) Mean Corpuscular Volume 82 fL (79-100) Mean Corpuscular Hemoglobin 28 pg (25-35) Mean Corpuscular Hemoglobin Concent 34 g/dL (31-37) Red Cell Distribution Width 14.4 % (11.5-14.5) Platelet Count 201 x10^3/uL (140-400) Neutrophils (%) (Auto) 68 % (31-73) Lymphocytes (%) (Auto) 15 % (24-48) Monocytes (%) (Auto) 17 % (0-9) Eosinophils (%) (Auto) 0 % (0-3) Basophils (%) (Auto) 0 % (0-3) Neutrophils # (Auto) 7.1 x10^3uL (1.8-7.7) Lymphocytes # (Auto) 1.6 x10^3/uL (1.0-4.8) Monocytes # (Auto) 1.8 x10^3/uL (0.0-1.1) Eosinophils # (Auto) 0.0 x10^3/uL (0.0-0.7) Basophils # (Auto) 0.0 x10^3/uL (0.0-0.2) Sodium Level 140 mmol/L (136-145) Potassium Level 3.7 mmol/L (3.5-5.1) Chloride Level 106 mmol/L (98-107) Carbon Dioxide Level 26 mmol/L (21-32) Anion Gap 8 (6-14) Blood Urea Nitrogen 5 mg/dL (7-20) Creatinine 0.8 mg/dL (0.6-1.0) Estimated GFR (Cockcroft-Gault) 97.1 Glucose Level 94 mg/dL (70-99) Calcium Level 7.0 mg/dL (8.5-10.1) Total Bilirubin 0.3 mg/dL (0.2-1.0) Direct Bilirubin 0.2 mg/dL (0.0-0.2) Aspartate Amino Transf (AST/SGOT) 35 U/L (15-37) Alanine Aminotransferase (ALT/SGPT) 51 U/L (14-59) Alkaline Phosphatase 39 U/L (46-116) Total Protein 6.0 g/dL (6.4-8.2) Albumin 2.5 g/dL (3.4-5.0) Objective Assessment Fever Leukocytosis Headache - s/p LP: CSF clear colorless, WBC 1, glu 92, T protein 26.1 - noncontrast MRI hillary unremarkable Herpetic rash perirectal/gluteal area h/o HSV Plan Plan of Care Clinically improving, continue vanc and Zosyn f/u BC Monitor temp, WBC and renal function Supportive care Thank you RIC LEMA APRN Jun 26, 2017 13:43
[2017-06-26 15:00] VITALS: BP 109/76
[2017-06-26] MEDS: valACYclovir 500 MG TABLET. PO SCH ×2 (17:37→22:45)
[2017-06-26] MEDS: BUTALB/APAP/CAFEIN 50/325/40MG TABLET. PO PRN (17:39)
[2017-06-26] MEDS: KETOROLAC 30 MG/ML INJ. IV PRN (19:02)
[2017-06-26] MEDS ORDERED: DEXTROSE 5% IV SCH (22:00)
[2017-06-26] MEDS ORDERED: ACYCLOVIR SODIUM IV SCH (22:00)
[2017-06-26] MEDS: LACTOBACILLUS RHAMNOSUS GG 1 CAPSULE. PO SCH (22:08)
[2017-06-26] MEDS: HYDROcodone/APAP 5/325MG 1 TAB TABLET PO PRN (22:45)
--- NOTE | 2017-06-26 22:56 | CONS ---
DATE OF CONSULTATION: 06/25/2017 DICTATING PHYSICIAN: Noé Phelps APRN. REFERRING PHYSICIAN: Dr. Edward. REASON FOR CONSULTATION: Fever. HISTORY OF PRESENT ILLNESS: This patient is a pleasant 37-year-old -[place] female who presented with a 3-day history of worsening pounding type headaches, generalized body aches and fever. She took Raya-Ravenel Plus and Tylenol with some relief. She has a history of headaches usually resolved with ibuprofen. However, these headaches were different in nature and in intensity. She developed a brief period of dry heaves after trying to eat along with diarrhea that has since resolved. She denies dizziness, confusion, visual change or neck stiffness. Two days following the onset of symptoms, she developed a perirectal/gluteal soreness for which she attributed to shaking from bouts of diarrhea. On arrival to the ER, she had a temperature of 103.1 with an elevated white blood cell count of 14,100. She underwent a lumbar puncture. CSF was clear, colorless with wbc's 1, rbc's 15, glucose 92 and total protein 26.1. A noncontrast brain MRI was unremarkable. She is currently on vancomycin and Zosyn. The patient reports feeling better. Her headache is almost gone. She has occasional chill without body aches or fever within the last 24 hours. The patient reports having history of herpes simplex over 10 years ago. She has been in a 2-year monogamous relationship with her live-in boyfriend. Denies other STDs. She has a history of a negative HIV. She denies exposure to ill contacts. Denies recent antibiotics or traveling. She does not have any pets. Denies sinus/nasal congestion or sore throat. Denies cough, shortness of air or chest discomfort. Denies abdominal pain, dysuria, frequency or urgency. PAST MEDICAL HISTORY: Herpes simplex. PAST SURGICAL HISTORY: section. SOCIAL HISTORY: The patient is single. She lives at home with her boyfriend. 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 FAMILY HISTORY: Noncontributory. ALLERGIES: No known drug allergies. MEDICATIONS: Vancomycin and Zosyn. Other medications are available and have been reviewed on the MAR. PHYSICAL EXAMINATION: GENERAL: -[place] female lying down in no apparent distress. VITAL SIGNS: Temperature is 97.9, T-max 103.1, blood pressure 110/54, heart rate 66, respiratory rate 16, pulse oximetry 95% on room air, weight 147 pounds and BMI 26. HEENT: Pupils equally round and reactive. Normal conjunctivae. Oral mucosa is pink and moist. No lesions seen. NECK: Supple. No nuchal rigidity or adenopathy appreciated. CHEST: Lungs clear to auscultation. HEART: Normal S1 and S2. ABDOMEN: Nondistended. Bowel sounds active. Soft and nontender. EXTREMITIES: No gross edema or cyanosis. SKIN: Located on the perirectal gluteal area are cluster of fluid filled blisters with mild erythema and warmth. NEUROLOGICAL: Alert and 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. Normal gait and balance. Moves all extremities. LABORATORY DATA: WBC 10.5 from 14.1 on admission; hemoglobin 11.4 and platelet count 201,000. Electrolytes are unremarkable. Creatinine 0.8, BUN 5 and glucose 94. Lactic acid 1.0. Total bilirubin 0.3, AST 35, ALT 51, albumin 2.5 and prolactin 18.3. Urinalysis positive for wbc's, leukocyte esterase, many squamous epithelial cells and bacteria. Urine hCG negative. Lumbar puncture per HPI. Influenza screen negative. Blood cultures negative to date. CSF Gram stain shows no organisms. RADIOLOGICAL DATA: Brain MRI unremarkable. Abdominal/pelvis CT showed mild distention of small bowel loops, which appear predominantly fluid filled. No definite surrounding inflammatory changes identified or evidence of bowel obstruction. Chest x-ray shows no pleural effusion, pneumothorax or focal consolidation. IMPRESSION: 1. Fever. 2. Leukocytosis. 3. Headache, status post lumbar puncture - normal. 4. Hepatic type rash in perirectal/gluteal area. 5. History of herpes simplex virus. PLAN: The patient is clinically improving. Symptoms likely related to viral syndrome. We will discontinue vancomycin and Zosyn. Check HCV antibody and PCR and add Valtrex. Verbal consent for HIV testing obtained. We will also check for syphilis and hepatitis. Monitor WBC and temperature. Supportive care. Thank you, Dr. Edward for asking us to participate in this patient's care. Should you have further questions or concerns, please call. The patient seen and examined and plan of care implemented by Dr. Aiden Maier. AIDEN MAIER MD DR: NANCY/helen JOB#: [id number] / [id number]
[2017-06-26 23:10] VITALS: BP 112/77
[2017-06-27 03:10] VITALS: BP 120/72
[2017-06-27] MEDS: HYDROcodone/APAP 5/325MG 1 TAB TABLET PO PRN ×2 (06:57→10:58)
[2017-06-27 07:00] VITALS: BP 110/59
[2017-06-27] MEDS: LACTOBACILLUS RHAMNOSUS GG 1 CAPSULE. PO SCH ×2 (09:00→20:23)
[2017-06-27] MEDS: POTASSIUM CHLORIDE 20 MEQ TABLET.ER. PO SCH (09:41)
[2017-06-27] MEDS: valACYclovir 500 MG TABLET. PO SCH ×2 (09:41→20:22)
[2017-06-27] MEDS: ENOXAPARIN 40 MG/0.4 ML SYRINGE. SQ SCH (09:42)
[2017-06-27] MEDS: KETOROLAC 30 MG/ML INJ. IV PRN ×2 (09:44→20:23)
[2017-06-27 10:39] VITALS: BP 113/84
[2017-06-27] MEDS: LIDOCAINE (700MG/PATCH) PATCH. TD SCH (12:02)
--- NOTE | 2017-06-27 12:44 | PDOC ---
Infectious Disease Note Subjective Subjective pt still has headache, low apetite no f/c/n/v/d/abdo pain ROS ROS GEN: Denies fevers, chills, sweats HEENT: Denies blurred vision, sore throat CV: Denies chest pain RESP: Denies shortness of air, cough GI: Denies n/v/d NEURO: Denies confusion, dizziness MSK: Denies weakness, joint pain/swelling Vital Sign Vital Signs Vital Signs Date Time Temp Pulse Resp B/P (MAP) Pulse Ox O2 Delivery O2 Flow Rate FiO2 06/27/17 12:03 100 Room Air 06/27/17 10:39 97.5 62 16 113/84 (94) 97.5 Physical Exam PHYSICAL EXAM GENERAL: NAD, Alert HEENT: PERRL, OC/OP NECK: Supple, no JVD, no LN LUNGS: Clear HEART: S1S2, no gallop, no murmur ABD: Soft, NT, no organomegaly, no rebound EXT: No edema, no cyanosis 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 hsv infection stable nausea and vomiting resolved diarrhea resolved Plan Plan of Care Clinically improving, Monitor off antibiotics on valtrex f/u BC Monitor temp, WBC and renal function Supportive care GRAHAM MAIER MD Jun 27, 2017 12:44
[2017-06-27 13:16] LABS: HEP A IGM ABDY Negative (Negative)
[2017-06-27 13:16] LABS: HIV ANTIBODY Non Reactive (Non Reactive)
[2017-06-27 15:00] VITALS: BP 111/64
--- NOTE | 2017-06-27 15:17 | PDOC ---
PROGRESS NOTES Chief Complaint Chief Complaint sepsis, NOS fever, leukocytosis, blood cx negative so far, final is pending, neck pain, headache History of Present Illness History of Present Illness try lidoderm patch to neck possible post LP headache cont current ID following Vitals Vitals Vital Signs Date Time Temp Pulse Resp B/P (MAP) Pulse Ox O2 Delivery O2 Flow Rate FiO2 06/27/17 12:03 100 Room Air 06/27/17 10:39 97.5 62 16 113/84 (94) 97.5 Physical Exam General: Alert, Oriented X3, Cooperative, No acute distress Heart: Regular rate Lungs: Clear Abdomen: Normal bowel sounds, Soft Extremities: No clubbing, No edema Skin: No rashes, No significant lesion Labs LABS Laboratory Tests Test 06/26/17 16:05 06/27/17 04:25 Hepatitis A IgM Antibody Negative (Negative) Hepatitis B Surface Antigen Negative (Negative) Hepatitis B Core IgM Antibody Negative (Negative) Hepatitis C Antibody <0.1 s/co ratio Erythrocyte Sedimentation Rate 48 (0-25) Magnesium Level 2.0 mg/dL (1.8-2.4) C-Reactive Protein, Quantitative 148.1 mg/L (0-3.3) Thyroid Stimulating Hormone (TSH) 2.243 uIU/mL (0.358-3.74) HIV (1&2) Antibody Non reactive (Non Reactive) Review of Systems Review of Systems neck pain, headache some weakness from baseline Assessment and Plan Assessmemt and Plan Problems Medical Problems: (1) Abdominal pain Status: Acute (2) Diarrhea Status: Acute (3) Hypokalemia Status: Acute (4) Nausea and vomiting Status: Acute Problems: Comment Review of Relevant I have reviewed the following items antelmo (where applicable) has been applied. Labs Laboratory Tests Test 06/25/17 16:30 06/25/17 22:30 06/26/17 04:55 06/26/17 16:05 CSF Tube Number 4 CSF Volume 1.2 CSF Color Colorless CSF Clarity Clear CSF WBC 1 CSF RBC 15 CSF Glucose 92 mg/dL (37-70) CSF Total Protein 26.1 mg/dL (15.0-45.0) Lactic Acid Level 1.0 mmol/L (0.4-2.0) White Blood Count 10.5 x10^3/uL (4.0-11.0) Red Blood Count 4.08 x10^6/uL (3.50-5.40) Hemoglobin 11.4 g/dL (12.0-15.5) Hematocrit 33.4 % (36.0-47.0) Mean Corpuscular Volume 82 fL (79-100) Mean Corpuscular Hemoglobin 28 pg (25-35) Mean Corpuscular Hemoglobin Concent 34 g/dL (31-37) Red Cell Distribution Width 14.4 % (11.5-14.5) Platelet Count 201 x10^3/uL (140-400) Neutrophils (%) (Auto) 68 % (31-73) Lymphocytes (%) (Auto) 15 % (24-48) Monocytes (%) (Auto) 17 % (0-9) Eosinophils (%) (Auto) 0 % (0-3) Basophils (%) (Auto) 0 % (0-3) Neutrophils # (Auto) 7.1 x10^3uL (1.8-7.7) Lymphocytes # (Auto) 1.6 x10^3/uL (1.0-4.8) Monocytes # (Auto) 1.8 x10^3/uL (0.0-1.1) Eosinophils # (Auto) 0.0 x10^3/uL (0.0-0.7) Basophils # (Auto) 0.0 x10^3/uL (0.0-0.2) Sodium Level 140 mmol/L (136-145) Potassium Level 3.7 mmol/L (3.5-5.1) Chloride Level 106 mmol/L (98-107) Carbon Dioxide Level 26 mmol/L (21-32) Anion Gap 8 (6-14) Blood Urea Nitrogen 5 mg/dL (7-20) Creatinine 0.8 mg/dL (0.6-1.0) Estimated GFR (Cockcroft-Gault) 97.1 Glucose Level 94 mg/dL (70-99) Calcium Level 7.0 mg/dL (8.5-10.1) Total Bilirubin 0.3 mg/dL (0.2-1.0) Direct Bilirubin 0.2 mg/dL (0.0-0.2) Aspartate Amino Transf (AST/SGOT) 35 U/L (15-37) Alanine Aminotransferase (ALT/SGPT) 51 U/L (14-59) Alkaline Phosphatase 39 U/L (46-116) Total Protein 6.0 g/dL (6.4-8.2) Albumin 2.5 g/dL (3.4-5.0) Hepatitis A IgM Antibody Negative (Negative) Hepatitis B Surface Antigen Negative (Negative) Hepatitis B Core IgM Antibody Negative (Negative) Hepatitis C Antibody <0.1 s/co ratio Test 06/27/17 04:25 Erythrocyte Sedimentation Rate 48 (0-25) Magnesium Level 2.0 mg/dL (1.8-2.4) C-Reactive Protein, Quantitative 148.1 mg/L (0-3.3) Thyroid Stimulating Hormone (TSH) 2.243 uIU/mL (0.358-3.74) HIV (1&2) Antibody Non reactive (Non Reactive) Laboratory Tests Test 06/26/17 16:05 06/27/17 04:25 Hepatitis A IgM Antibody Negative (Negative) Hepatitis B Surface Antigen Negative (Negative) Hepatitis B Core IgM Antibody Negative (Negative) Hepatitis C Antibody <0.1 s/co ratio Erythrocyte Sedimentation Rate 48 (0-25) Magnesium Level 2.0 mg/dL (1.8-2.4) C-Reactive Protein, Quantitative 148.1 mg/L (0-3.3) Thyroid Stimulating Hormone (TSH) 2.243 uIU/mL (0.358-3.74) HIV (1&2) Antibody Non reactive (Non Reactive) Microbiology 06/25/17 Blood Culture - Preliminary, Resulted NO GROWTH AFTER 1 DAY 06/25/17 Gram Stain - Final, Complete Medications Current Medications Sodium Chloride 1,000 ml @ 1,000 mls/hr 1X ONCE IV Last administered on 06/25 14:38; Start 06/25/17 at 14:15; Stop 06/25/17 at 15:14; Status DC Famotidine (Pepcid Vial) 20 mg 1X ONCE IVP Last administered on 06/25/17 14: 37; Start 06/25/17 at 14:15; Stop 06/25/17 at 14:32; Status DC Ondansetron HCl (Zofran) 4 mg 1X ONCE IV Last administered on 06/25/17 14:37 ; Start 06/25/17 at 14:15; Stop 06/25/17 at 14:32; Status DC Acetaminophen (Tylenol) 500 mg 1X ONCE PO Last administered on 06/25/17 14: 37; Start 06/25/17 at 14:30; Stop 06/25/17 at 14:32; Status DC Acetaminophen (Tylenol) 1,000 mg 1X ONCE PO ; Start 06/25/17 at 15:00; Stop 06/25/17 at 15:01; Status DC Ibuprofen (Motrin) 800 mg 1X ONCE PO Last administered on 06/25/17 15:00; Start 06/25/17 at 15:00; Stop 06/25/17 at 15:01; Status DC Iohexol (Omnipaque 300 Mg/ml) 75 ml 1X ONCE IV Last administered on 15:58; Start 06/25/17 at 15:15; Stop 06/25/17 at 15:16; Status DC Info (Do NOT chart on this entry -- for MONITORING) 1 each PRN DAILY PRN MC SEE COMMENTS; Start 06/25/17 at 15:15; Stop 06/27/17 at 15:14; Status DC Potassium Chloride (KCl Oral Soln) 40 meq 1X ONCE PO Last administered on 15:33; Start 06/25/17 at 15:15; Stop 06/25/17 at 15:16; Status DC Sodium Chloride 1,000 ml @ 1,000 mls/hr 1X ONCE IV Last administered on 06/25 18:20; Start 06/25/17 at 15:15; Stop 06/25/17 at 16:14; Status DC Fentanyl Citrate (Fentanyl 2ml Vial) 50 mcg 1X ONCE IV Last administered on 15:34; Start 06/25/17 at 15:30; Stop 06/25/17 at 15:31; Status DC Fentanyl Citrate (Fentanyl 2ml Vial) 50 mcg 1X ONCE IV Last administered on 16:16; Start 06/25/17 at 16:15; Stop 06/25/17 at 16:16; Status DC Lidocaine HCl (Xylocaine-Mpf 1% Vial) 2 ml STK-MED ONCE .ROUTE ; Start at 16:25; Stop 06/25/17 at 16:26; Status DC Sodium Chloride (NORMAL SALINE FLUSH for STERILE FIELD) 10 ml STK-MED ONCE .ROUTE ; Start 06/25/17 at 16:33; Stop 06/25/17 at 16:34; Status DC Fentanyl Citrate (Fentanyl 2ml Vial) 50 mcg PRN Q30MIN PRN IV SEVERE PAIN Last administered on 06/26/17 00:08; Start 06/25/17 at 19:30; Stop 06/26/17 at 00 :08; Status DC Piperacillin Sod/ Tazobactam Sod (Zosyn Per Pharmacy) 1 each PRN DAILY PRN MC SEE COMMENTS; Start 06/25/17 at 20:15; Stop 06/26/17 at 15:57; Status DC Vancomycin HCl (Vanco Per Pharmacy) 1 each PRN DAILY PRN MC SEE COMMENTS Last administered on 06/26/17 11:39; Start 06/25/17 at 20:15; Stop 06/26/17 at 15 :09; Status DC Ondansetron HCl (Zofran) 4 mg PRN Q8HRS PRN IV NAUSEA/VOMITING; Start at 20:15; Stop 06/26/17 at 20:14; Status DC Morphine Sulfate 2 mg PRN Q2HR PRN IV PAIN Last administered on 06/26/17 05: 17; Start 06/25/17 at 20:15; Stop 06/26/17 at 20:14; Status DC Sodium Chloride 1,000 ml @ 100 mls/hr Q10H IV Last administered on 06/26/17 10:03; Start 06/25/17 at 20:13; Stop 06/26/17 at 20:12; Status DC Vancomycin HCl 1.75 gm/Dextrose/ Sodium Chloride 500 ml @ 250 mls/hr 1X ONCE IV Last administered on 06/25/17 21:26; Start 06/25/17 at 20:30; Stop 06/25 at 22:29; Status DC Piperacillin Sod/ Tazobactam Sod (Zosyn) 3.375 gm ONCE ONCE IVP Last administered on 06/25/17 21:22; Start 06/25/17 at 20:30; Stop 06/25/17 at 20 :31; Status DC Piperacillin Sod/ Tazobactam Sod (Zosyn) 3.375 gm Q6HRS IVP Last administered on 06/26/17 14:26; Start 06/26/17 at 06:00; Stop 06/26/17 at 15:48; Status DC Vancomycin HCl 1 gm/Sodium Chloride 500 ml @ 500 mls/hr Q24H IV ; Start at 21:00; Stop 06/26/17 at 21:00; Status DC Vancomycin HCl 1 each 1X ONCE MC ; Start 06/27/17 at 23:30; Stop 06/27/17 at 23:30; Status DC Potassium Chloride (Klor-Con) 20 meq [id number] PO Last administered on 09:41; Start 06/26/17 at 08:00 Zolpidem Tartrate (Ambien) 5 mg PRN QHS PRN PO INSOMNIA Last administered on 01:26; Start 06/26/17 at 01:00 Ketorolac Tromethamine (Toradol) 15 mg 1X ONCE IV Last administered on 10:03; Start 06/26/17 at 09:00; Stop 06/26/17 at 09:01; Status DC Acetaminophen/ Butalbital/ Caffeine (Fioricet) 1 tab PRN Q6HRS PRN PO MIGRAINE HEADACHE Last administered on 06/26/17 17:39; Start 06/26/17 at 08:15 Enoxaparin Sodium (Lovenox Per Pharmacy Prophylaxis Dosing) 1 each PRN DAILY PRN MC SEE COMMENTS; Start 06/26/17 at 08:30 Enoxaparin Sodium (Lovenox 40mg Syringe) 40 mg Q24H SQ Last administered on 09:42; Start 06/26/17 at 09:00 Lactobacillus Rhamnosus (Culturelle) 1 cap BID PO Last administered on 22:08; Start 06/26/17 at 21:00 Vancomycin HCl 1 gm/Sodium Chloride 500 ml @ 500 mls/hr Q12H IV Last administered on 06/26/17 14:29; Start 06/26/17 at 12:00; Stop 06/26/17 at 15 :08; Status DC Acyclovir Sodium 520 mg/Dextrose 60.4 ml @ 60.4 mls/hr Q8HRS IV ; Start at 22:00; Status UNV Valacyclovir HCl (Valtrex) 1,000 mg BID PO Last administered on 06/27/17 09: 41; Start 06/26/17 at 16:00 Ketorolac Tromethamine (Toradol) 30 mg PRN Q6HRS PRN IV PAIN Last administered on 06/27/17 09:44; Start 06/26/17 at 18:30; Stop 07/01/17 at 18:29 Acetaminophen/ Hydrocodone Bitart (Lortab 5/325) 1 tab PRN Q4HRS PRN PO PAIN Last administered on 06/27/17 10:58; Start 06/26/17 at 18:30 Lidocaine (Lidoderm) 1 patch DAILY TD Last administered on 06/27/17 12:02; Start 06/27/17 at 11:30 Vitals/I & O Vital Sign - Last 24 Hours 06/26/17 06/26/17 06/26/17 06/27/17 20:00 22:45 23:10 03:10 Temp 97.8 97.5 97.8 97.5 Pulse 66 68 Resp 18 18 B/P (MAP) 112/77 (89) 120/72 (88) Pulse Ox 100 100 100 O2 Delivery Room Air Room Air Room Air Room Air 06/27/17 06/27/17 06/27/17 06/27/17 06:57 07:00 08:00 10:39 Temp 97.9 97.5 97.9 97.5 Pulse 64 62 Resp 16 16 B/P (MAP) 110/59 (76) 113/84 (94) Pulse Ox 100 100 100 O2 Delivery Room Air Room Air Room Air Room Air 06/27/17 06/27/17 10:58 12:03 Pulse Ox 100 100 O2 Delivery Room Air Room Air Intake and Output 06/26/17 06/26/17 06/27/17 15:00 23:00 07:00 Intake Total 300 ml 450 ml Balance 300 ml 450 ml SANTIAGO PATEL MD Jun 27, 2017 15:16
[2017-06-27 19:56] VITALS: BP 115/67
[2017-06-27] MEDS: BUTALB/APAP/CAFEIN 50/325/40MG TABLET. PO PRN (20:24)
[2017-06-27] MEDS: ZOLPIDEM 5 MG TABLET. PO PRN (22:27)
[2017-06-27 23:13] VITALS: BP_SYST 106
--- NOTE | 2017-06-27 23:42 | CONS ---
DATE OF CONSULTATION: 06/27/2017 ATTENDING PHYSICIAN: Victorina Barone MD REASON FOR CONSULTATION: The patient was seen at the request of Dr. Barone for rehab evaluation about her neck pain. HISTORY OF PRESENT ILLNESS: This is a 37-year-old female admitted through the Emergency Room with leukocytosis and impressive fever of 103 with generalized body aches, also had a bitemporal headaches and back pain the night before admission. Lumbar puncture was done looks clear. She previously had diarrhea for about 3 days. She had also abdominal pain, poor p.o. intake, seems improved. ALLERGIES: The patient not known allergic to any medication. FAMILY HISTORY: Carcinoma with parents. The patient had chest x-ray which was within normal limits. MRI scan of the brain within normal limits. CT of the abdomen and pelvis, mild distention of the small bowel loops, which appears predominantly fluid filled, findings may be seen in the setting of enteritis. KUB, no abnormality detected. The patient did not feel good this morning, but she feels much better this afternoon. She denies any significant pain or headaches. PHYSICAL EXAMINATION: Today revealed she is alert, oriented to time, place, person and circumstance and cooperative. She had painful range of motion of her cervical, thoracic and lumbar spine without any tenderness to palpation. She is independent with her mobility and self-care skills. She had normal neurological examination of both upper and lower extremities including sensory, motor and reflex examination. ASSESSMENT: The patient with recent enteritis feeling better today. No significant neck or back pain at present time. RECOMMENDATIONS: No need for any rehab followup, when medically stable, home with outpatient followup. Dr. Barone, I appreciate asking me to participate in the care of this interesting patient. I will be glad to see her for followup on as-needed basis. JULEE SILVERMAN MD DR: JANNY/helen JOB#: [id number] / [id number]
[2017-06-28] VITALS (7 sets, daily range): BP systolic 111–126; BP diastolic 62–77
[2017-06-28] MEDS: KETOROLAC 30 MG/ML INJ. IV PRN ×2 (06:22→14:26)
[2017-06-28] MEDS: HYDROcodone/APAP 5/325MG 1 TAB TABLET PO PRN ×2 (06:30→16:40)
[2017-06-28] MEDS: ENOXAPARIN 40 MG/0.4 ML SYRINGE. SQ SCH (09:00)
--- NOTE | 2017-06-28 09:02 | PDOC ---
PROGRESS NOTES Subjective Subjective She admits some headache and neck pain. Objective Objective Vital Signs Date Time Temp Pulse Resp B/P (MAP) Pulse Ox O2 Delivery O2 Flow Rate FiO2 06/28/17 07:00 97.9 57 16 112/62 (79) 100 Room Air 97.9 Intake and Output 06/28/17 07:00 Intake Total 860 ml Output Total 100 ml Balance 760 ml Intake Oral 860 ml Output Urine Total 100 ml # Voids 5 Physical Exam Physical Exam She is alert and remains independent with her mobility and no pain on ROM of cervical and thoracolumbar spine.She had minimal tenderness to palpation over lower cervical paraspinal muscles without any spasms and she is independent with her mobility. Assessment Assessment Problems Medical Problems: (1) Abdominal pain Status: Acute (2) Diarrhea Status: Acute (3) Hypokalemia Status: Acute (4) Nausea and vomiting Status: Acute Plan Plan of Custodial when medically stable. Comment Review of Relevant I have reviewed the following items antelmo (where applicable) has been applied. Labs Laboratory Tests Test 06/26/17 16:05 06/27/17 04:25 Rapid Plasma Reagin Non reactive (Non Reactive) Hepatitis A IgM Antibody Negative (Negative) Hepatitis B Surface Antigen Negative (Negative) Hepatitis B Core IgM Antibody Negative (Negative) Hepatitis C Antibody <0.1 s/co ratio Erythrocyte Sedimentation Rate 48 (0-25) Magnesium Level 2.0 mg/dL (1.8-2.4) C-Reactive Protein, Quantitative 148.1 mg/L (0-3.3) Thyroid Stimulating Hormone (TSH) 2.243 uIU/mL (0.358-3.74) HIV (1&2) Antibody Non reactive (Non Reactive) Microbiology 06/25/17 Blood Culture - Preliminary, Resulted NO GROWTH AFTER 2 DAYS 06/25/17 Gram Stain - Final, Complete Medications Current Medications Sodium Chloride 1,000 ml @ 1,000 mls/hr 1X ONCE IV Last administered on 06/25 14:38; Start 06/25/17 at 14:15; Stop 06/25/17 at 15:14; Status DC Famotidine (Pepcid Vial) 20 mg 1X ONCE IVP Last administered on 06/25/17 14: 37; Start 06/25/17 at 14:15; Stop 06/25/17 at 14:32; Status DC Ondansetron HCl (Zofran) 4 mg 1X ONCE IV Last administered on 06/25/17 14:37 ; Start 06/25/17 at 14:15; Stop 06/25/17 at 14:32; Status DC Acetaminophen (Tylenol) 500 mg 1X ONCE PO Last administered on 06/25/17 14: 37; Start 06/25/17 at 14:30; Stop 06/25/17 at 14:32; Status DC Acetaminophen (Tylenol) 1,000 mg 1X ONCE PO ; Start 06/25/17 at 15:00; Stop 06/25/17 at 15:01; Status DC Ibuprofen (Motrin) 800 mg 1X ONCE PO Last administered on 06/25/17 15:00; Start 06/25/17 at 15:00; Stop 06/25/17 at 15:01; Status DC Iohexol (Omnipaque 300 Mg/ml) 75 ml 1X ONCE IV Last administered on 15:58; Start 06/25/17 at 15:15; Stop 06/25/17 at 15:16; Status DC Info (Do NOT chart on this entry -- for MONITORING) 1 each PRN DAILY PRN MC SEE COMMENTS; Start 06/25/17 at 15:15; Stop 06/27/17 at 15:14; Status DC Potassium Chloride (KCl Oral Soln) 40 meq 1X ONCE PO Last administered on 15:33; Start 06/25/17 at 15:15; Stop 06/25/17 at 15:16; Status DC Sodium Chloride 1,000 ml @ 1,000 mls/hr 1X ONCE IV Last administered on 06/25 18:20; Start 06/25/17 at 15:15; Stop 06/25/17 at 16:14; Status DC Fentanyl Citrate (Fentanyl 2ml Vial) 50 mcg 1X ONCE IV Last administered on 15:34; Start 06/25/17 at 15:30; Stop 06/25/17 at 15:31; Status DC Fentanyl Citrate (Fentanyl 2ml Vial) 50 mcg 1X ONCE IV Last administered on 16:16; Start 06/25/17 at 16:15; Stop 06/25/17 at 16:16; Status DC Lidocaine HCl (Xylocaine-Mpf 1% Vial) 2 ml STK-MED ONCE .ROUTE ; Start at 16:25; Stop 06/25/17 at 16:26; Status DC Sodium Chloride (NORMAL SALINE FLUSH for STERILE FIELD) 10 ml STK-MED ONCE .ROUTE ; Start 06/25/17 at 16:33; Stop 06/25/17 at 16:34; Status DC Fentanyl Citrate (Fentanyl 2ml Vial) 50 mcg PRN Q30MIN PRN IV SEVERE PAIN Last administered on 06/26/17 00:08; Start 06/25/17 at 19:30; Stop 06/26/17 at 00 :08; Status DC Piperacillin Sod/ Tazobactam Sod (Zosyn Per Pharmacy) 1 each PRN DAILY PRN MC SEE COMMENTS; Start 06/25/17 at 20:15; Stop 06/26/17 at 15:57; Status DC Vancomycin HCl (Vanco Per Pharmacy) 1 each PRN DAILY PRN MC SEE COMMENTS Last administered on 06/26/17 11:39; Start 06/25/17 at 20:15; Stop 06/26/17 at 15 :09; Status DC Ondansetron HCl (Zofran) 4 mg PRN Q8HRS PRN IV NAUSEA/VOMITING; Start at 20:15; Stop 06/26/17 at 20:14; Status DC Morphine Sulfate 2 mg PRN Q2HR PRN IV PAIN Last administered on 06/26/17 05: 17; Start 06/25/17 at 20:15; Stop 06/26/17 at 20:14; Status DC Sodium Chloride 1,000 ml @ 100 mls/hr Q10H IV Last administered on 06/26/17 10:03; Start 06/25/17 at 20:13; Stop 06/26/17 at 20:12; Status DC Vancomycin HCl 1.75 gm/Dextrose/ Sodium Chloride 500 ml @ 250 mls/hr 1X ONCE IV Last administered on 06/25/17 21:26; Start 06/25/17 at 20:30; Stop 06/25 at 22:29; Status DC Piperacillin Sod/ Tazobactam Sod (Zosyn) 3.375 gm ONCE ONCE IVP Last administered on 06/25/17 21:22; Start 06/25/17 at 20:30; Stop 06/25/17 at 20 :31; Status DC Piperacillin Sod/ Tazobactam Sod (Zosyn) 3.375 gm Q6HRS IVP Last administered on 06/26/17 14:26; Start 06/26/17 at 06:00; Stop 06/26/17 at 15:48; Status DC Vancomycin HCl 1 gm/Sodium Chloride 500 ml @ 500 mls/hr Q24H IV ; Start at 21:00; Stop 06/26/17 at 21:00; Status DC Vancomycin HCl 1 each 1X ONCE MC ; Start 06/27/17 at 23:30; Stop 06/27/17 at 23:30; Status DC Potassium Chloride (Klor-Con) 20 meq DAILYWBKFT PO Last administered on 09:41; Start 06/26/17 at 08:00 Zolpidem Tartrate (Ambien) 5 mg PRN QHS PRN PO INSOMNIA Last administered on 22:27; Start 06/26/17 at 01:00 Ketorolac Tromethamine (Toradol) 15 mg 1X ONCE IV Last administered on 10:03; Start 06/26/17 at 09:00; Stop 06/26/17 at 09:01; Status DC Acetaminophen/ Butalbital/ Caffeine (Fioricet) 1 tab PRN Q6HRS PRN PO MIGRAINE HEADACHE Last administered on 06/27/17 20:24; Start 06/26/17 at 08:15 Enoxaparin Sodium (Lovenox Per Pharmacy Prophylaxis Dosing) 1 each PRN DAILY PRN MC SEE COMMENTS; Start 06/26/17 at 08:30 Enoxaparin Sodium (Lovenox 40mg Syringe) 40 mg Q24H SQ Last administered on 09:42; Start 06/26/17 at 09:00 Lactobacillus Rhamnosus (Culturelle) 1 cap BID PO Last administered on 20:23; Start 06/26/17 at 21:00 Vancomycin HCl 1 gm/Sodium Chloride 500 ml @ 500 mls/hr Q12H IV Last administered on 06/26/17 14:29; Start 06/26/17 at 12:00; Stop 06/26/17 at 15 :08; Status DC Acyclovir Sodium 520 mg/Dextrose 60.4 ml @ 60.4 mls/hr Q8HRS IV ; Start at 22:00; Status UNV Valacyclovir HCl (Valtrex) 1,000 mg BID PO Last administered on 06/27/17 20: 22; Start 06/26/17 at 16:00 Ketorolac Tromethamine (Toradol) 30 mg PRN Q6HRS PRN IV PAIN Last administered on 06/28/17 06:22; Start 06/26/17 at 18:30; Stop 07/01/17 at 18:29 Acetaminophen/ Hydrocodone Bitart (Lortab 5/325) 1 tab PRN Q4HRS PRN PO PAIN Last administered on 06/28/17 06:30; Start 06/26/17 at 18:30 Lidocaine (Lidoderm) 1 patch DAILY TD Last administered on 06/27/17 12:02; Start 06/27/17 at 11:30 Vitals/I & O Vital Sign - Last 24 Hours 06/27/17 06/27/17 06/27/17 06/27/17 10:39 10:58 12:03 15:00 Temp 97.5 97.7 97.5 97.7 Pulse 62 61 Resp 16 16 B/P (MAP) 113/84 (94) 111/64 (80) Pulse Ox 100 100 100 100 O2 Delivery Room Air Room Air Room Air Room Air 06/27/17 06/27/17 06/27/17 06/28/17 19:56 20:00 23:13 03:07 Temp 97.8 98.2 98.0 97.8 98.2 98.0 Pulse 66 57 57 Resp 20 20 20 B/P (MAP) 115/67 (83) 106/ 114/62 (79) Pulse Ox 100 99 100 O2 Delivery Room Air Room Air Room Air Room Air 06/28/17 07:00 Temp 97.9 97.9 Pulse 57 Resp 16 B/P (MAP) 112/62 (79) Pulse Ox 100 O2 Delivery Room Air Intake and Output 06/27/17 06/27/17 06/28/17 15:00 23:00 07:00 Intake Total 600 ml 260 ml Output Total 100 ml Balance 600 ml 160 ml JULEE SILVERMAN MD Jun 28, 2017 09:02
[2017-06-28] MEDS: IBUPROFEN 800 MG TABLET. PO SCH ×3 (09:40→21:00)
[2017-06-28] MEDS: LIDOCAINE (700MG/PATCH) PATCH. TD SCH (09:41)
[2017-06-28] MEDS: POTASSIUM CHLORIDE 20 MEQ TABLET.ER. PO SCH (09:41)
[2017-06-28] MEDS: LACTOBACILLUS RHAMNOSUS GG 1 CAPSULE. PO SCH ×2 (09:41→21:15)
[2017-06-28] MEDS: valACYclovir 500 MG TABLET. PO SCH ×2 (09:41→21:15)
--- NOTE | 2017-06-28 11:03 | PDOC ---
Infectious Disease Note Subjective Subjective pt still has headache,somewhat improved today, had nausea and vomiting last night has low apetite no f/c/n/v/d/abdo pain this am ROS ROS GEN: Denies fevers, chills, sweats HEENT: Denies blurred vision, sore throat CV: Denies chest pain RESP: Denies shortness of air, cough GI: Denies n/v/d NEURO: Denies confusion, dizziness MSK: Denies weakness, joint pain/swelling Vital Sign Vital Signs Vital Signs Date Time Temp Pulse Resp B/P (MAP) Pulse Ox O2 Delivery O2 Flow Rate FiO2 06/28/17 08:00 Room Air 06/28/17 07:00 97.9 57 16 112/62 (79) 100 97.9 Physical Exam PHYSICAL EXAM GENERAL: NAD, Alert HEENT: PERRL, OC/OP NECK: Supple, no JVD, no LN LUNGS: Clear HEART: S1S2, no gallop, no murmur ABD: Soft, NT, no organomegaly, no rebound EXT: No edema, no cyanosis 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 hsv infection stable nausea and vomiting resolved diarrhea resolved Plan Plan of Care Clinically improving, Monitor off antibiotics on valtrex, can dc home on total 10 days encouraged inc fluid intake f/u BC OK to dc from ID standpoint f/u with pcp as outpt in 10-14 days GRAHAM MAIER MD Jun 28, 2017 11:03
--- NOTE | 2017-06-28 11:26 | PDOC ---
PROGRESS NOTES Chief Complaint Chief Complaint Sepsis Fever Leukocytosis Headache Abdominal pain Neck pain History of Present Illness History of Present Illness Patient tolerating antibiotics Pain is being managed appropriately Continue prn medications for pain Infectious disease is following case Fever improved, leukocytosis improving Vitals Vitals Vital Signs Date Time Temp Pulse Resp B/P (MAP) Pulse Ox O2 Delivery O2 Flow Rate FiO2 06/28/17 11:14 100 Room Air 06/28/17 11:00 97.8 50 16 111/64 (80) 97.8 Physical Exam General: Alert, Oriented X3, Cooperative, No acute distress Heart: Regular rate Lungs: Clear Abdomen: Normal bowel sounds, Soft Extremities: No clubbing, No edema Skin: No rashes, No significant lesion Review of Systems Review of Systems Complains of headache Denies SOA or dyspnea Assessment and Plan Assessmemt and Plan Problems Medical Problems: (1) Abdominal pain Status: Acute (2) Diarrhea Status: Acute (3) Hypokalemia Status: Acute (4) Nausea and vomiting Status: Acute Assessment Sepsis Fever Leukocytosis Headache Abdominal pain Neck pain Plan Continue antibiotics Continue PRN narcotics DC when ok with infectious disease Recheck labs PT/OT Problems: Comment Review of Relevant I have reviewed the following items antelmo (where applicable) has been applied. Labs Laboratory Tests Test 06/26/17 16:05 06/27/17 04:25 Rapid Plasma Reagin Non reactive (Non Reactive) Hepatitis A IgM Antibody Negative (Negative) Hepatitis B Surface Antigen Negative (Negative) Hepatitis B Core IgM Antibody Negative (Negative) Hepatitis C Antibody <0.1 s/co ratio Erythrocyte Sedimentation Rate 48 (0-25) Magnesium Level 2.0 mg/dL (1.8-2.4) C-Reactive Protein, Quantitative 148.1 mg/L (0-3.3) Thyroid Stimulating Hormone (TSH) 2.243 uIU/mL (0.358-3.74) HIV (1&2) Antibody Non reactive (Non Reactive) Microbiology 06/25/17 Blood Culture - Preliminary, Resulted NO GROWTH AFTER 2 DAYS 06/25/17 Gram Stain - Final, Complete Medications Current Medications Sodium Chloride 1,000 ml @ 1,000 mls/hr 1X ONCE IV Last administered on 06/25t 14:38; Start 06/25/17 at 14:15; Stop 06/25/17 at 15:14; Status DC Famotidine (Pepcid Vial) 20 mg 1X ONCE IVP Last administered on 06/25/17 14: 37; Start 06/25/17 at 14:15; Stop 06/25/17 at 14:32; Status DC Ondansetron HCl (Zofran) 4 mg 1X ONCE IV Last administered on 06/25/17 14:37 ; Start 06/25/17 at 14:15; Stop 06/25/17 at 14:32; Status DC Acetaminophen (Tylenol) 500 mg 1X ONCE PO Last administered on 06/25/17 14: 37; Start 06/25/17 at 14:30; Stop 06/25/17 at 14:32; Status DC Acetaminophen (Tylenol) 1,000 mg 1X ONCE PO ; Start 06/25/17 at 15:00; Stop 06/25/17 at 15:01; Status DC Ibuprofen (Motrin) 800 mg 1X ONCE PO Last administered on 06/25/17 15:00; Start 06/25/17 at 15:00; Stop 06/25/17 at 15:01; Status DC Iohexol (Omnipaque 300 Mg/ml) 75 ml 1X ONCE IV Last administered on 15:58; Start 06/25/17 at 15:15; Stop 06/25/17 at 15:16; Status DC Info (Do NOT chart on this entry -- for MONITORING) 1 each PRN DAILY PRN MC SEE COMMENTS; Start 06/25/17 at 15:15; Stop 06/27/17 at 15:14; Status DC Potassium Chloride (KCl Oral Soln) 40 meq 1X ONCE PO Last administered on 15:33; Start 06/25/17 at 15:15; Stop 06/25/17 at 15:16; Status DC Sodium Chloride 1,000 ml @ 1,000 mls/hr 1X ONCE IV Last administered on 06/25 18:20; Start 06/25/17 at 15:15; Stop 06/25/17 at 16:14; Status DC Fentanyl Citrate (Fentanyl 2ml Vial) 50 mcg 1X ONCE IV Last administered on 15:34; Start 06/25/17 at 15:30; Stop 06/25/17 at 15:31; Status DC Fentanyl Citrate (Fentanyl 2ml Vial) 50 mcg 1X ONCE IV Last administered on 16:16; Start 06/25/17 at 16:15; Stop 06/25/17 at 16:16; Status DC Lidocaine HCl (Xylocaine-Mpf 1% Vial) 2 ml STK-MED ONCE .ROUTE ; Start at 16:25; Stop 06/25/17 at 16:26; Status DC Sodium Chloride (NORMAL SALINE FLUSH for STERILE FIELD) 10 ml STK-MED ONCE .ROUTE ; Start 06/25/17 at 16:33; Stop 06/25/17 at 16:34; Status DC Fentanyl Citrate (Fentanyl 2ml Vial) 50 mcg PRN Q30MIN PRN IV SEVERE PAIN Last administered on 06/26/17 00:08; Start 06/25/17 at 19:30; Stop 06/26/17 at 00 :08; Status DC Piperacillin Sod/ Tazobactam Sod (Zosyn Per Pharmacy) 1 each PRN DAILY PRN MC SEE COMMENTS; Start 06/25/17 at 20:15; Stop 06/26/17 at 15:57; Status DC Vancomycin HCl (Vanco Per Pharmacy) 1 each PRN DAILY PRN MC SEE COMMENTS Last administered on 06/26/17 11:39; Start 06/25/17 at 20:15; Stop 06/26/17 at 15 :09; Status DC Ondansetron HCl (Zofran) 4 mg PRN Q8HRS PRN IV NAUSEA/VOMITING; Start at 20:15; Stop 06/26/17 at 20:14; Status DC Morphine Sulfate 2 mg PRN Q2HR PRN IV PAIN Last administered on 06/26/17 05: 17; Start 06/25/17 at 20:15; Stop 06/26/17 at 20:14; Status DC Sodium Chloride 1,000 ml @ 100 mls/hr Q10H IV Last administered on 06/26/17 10:03; Start 06/25/17 at 20:13; Stop 06/26/17 at 20:12; Status DC Vancomycin HCl 1.75 gm/Dextrose/ Sodium Chloride 500 ml @ 250 mls/hr 1X ONCE IV Last administered on 06/25/17 21:26; Start 06/25/17 at 20:30; Stop 06/25 at 22:29; Status DC Piperacillin Sod/ Tazobactam Sod (Zosyn) 3.375 gm ONCE ONCE IVP Last administered on 06/25/17 21:22; Start 06/25/17 at 20:30; Stop 06/25/17 at 20 :31; Status DC Piperacillin Sod/ Tazobactam Sod (Zosyn) 3.375 gm Q6HRS IVP Last administered on 06/26/17 14:26; Start 06/26/17 at 06:00; Stop 06/26/17 at 15:48; Status DC Vancomycin HCl 1 gm/Sodium Chloride 500 ml @ 500 mls/hr Q24H IV ; Start at 21:00; Stop 06/26/17 at 21:00; Status DC Vancomycin HCl 1 each 1X ONCE MC ; Start 06/27/17 at 23:30; Stop 06/27/17 at 23:30; Status DC Potassium Chloride (Klor-Con) 20 meq DAILYWBKFT PO Last administered on 09:41; Start 06/26/17 at 08:00 Zolpidem Tartrate (Ambien) 5 mg PRN QHS PRN PO INSOMNIA Last administered on 22:27; Start 06/26/17 at 01:00 Ketorolac Tromethamine (Toradol) 15 mg 1X ONCE IV Last administered on 10:03; Start 06/26/17 at 09:00; Stop 06/26/17 at 09:01; Status DC Acetaminophen/ Butalbital/ Caffeine (Fioricet) 1 tab PRN Q6HRS PRN PO MIGRAINE HEADACHE Last administered on 06/27/17 20:24; Start 06/26/17 at 08:15 Enoxaparin Sodium (Lovenox Per Pharmacy Prophylaxis Dosing) 1 each PRN DAILY PRN MC SEE COMMENTS; Start 06/26/17 at 08:30 Enoxaparin Sodium (Lovenox 40mg Syringe) 40 mg Q24H SQ Last administered on 09:42; Start 06/26/17 at 09:00 Lactobacillus Rhamnosus (Culturelle) 1 cap BID PO Last administered on 09:41; Start 06/26/17 at 21:00 Vancomycin HCl 1 gm/Sodium Chloride 500 ml @ 500 mls/hr Q12H IV Last administered on 06/26/17 14:29; Start 06/26/17 at 12:00; Stop 06/26/17 at 15 :08; Status DC Acyclovir Sodium 520 mg/Dextrose 60.4 ml @ 60.4 mls/hr Q8HRS IV ; Start at 22:00; Status UNV Valacyclovir HCl (Valtrex) 1,000 mg BID PO Last administered on 06/28/17 09: 41; Start 06/26/17 at 16:00 Ketorolac Tromethamine (Toradol) 30 mg PRN Q6HRS PRN IV PAIN Last administered on 06/28/17 06:22; Start 06/26/17 at 18:30; Stop 07/01/17 at 18:29 Acetaminophen/ Hydrocodone Bitart (Lortab 5/325) 1 tab PRN Q4HRS PRN PO PAIN Last administered on 06/28/17 06:30; Start 06/26/17 at 18:30 Lidocaine (Lidoderm) 1 patch DAILY TD Last administered on 06/28/17 09:41; Start 06/27/17 at 11:30 Ibuprofen (Motrin) 800 mg TID PO Last administered on 06/28/17 09:40; Start 06/28/17 at 09:30 Vitals/I & O Vital Sign - Last 24 Hours 06/27/17 06/27/17 06/27/17 06/27/17 15:00 19:56 20:00 23:13 Temp 97.7 97.8 98.2 97.7 97.8 98.2 Pulse 61 66 57 Resp 16 20 20 B/P (MAP) 111/64 (80) 115/67 (83) 106/ Pulse Ox 100 100 99 O2 Delivery Room Air Room Air Room Air Room Air 06/28/17 06/28/17 06/28/17 06/28/17 03:07 07:00 08:00 11:00 Temp 98.0 97.9 97.8 98.0 97.9 97.8 Pulse 57 57 50 Resp 20 16 16 B/P (MAP) 114/62 (79) 112/62 (79) 111/64 (80) Pulse Ox 100 100 100 O2 Delivery Room Air Room Air Room Air Room Air 06/28/17 11:14 Pulse Ox 100 O2 Delivery Room Air Intake and Output 06/27/17 06/27/17 06/28/17 15:00 23:00 07:00 Intake Total 600 ml 260 ml Output Total 100 ml Balance 600 ml 160 ml SHANNAN HINTON III DO Jun 28, 2017 11:26
[2017-06-28] MEDS ORDERED: PROCHLORPERAZINE 10 MG/2 ML VIAL. IV PRN (13:15)
[2017-06-28] MEDS ORDERED: FLU VACC QS2017-18 (36MOS+)/PF 0.5 ML SYRINGE. VAX IM ONE (15:00)
[2017-06-28] MEDS ORDERED: fentaNYL PF VIAL 100 MCG/2 ML VIAL IV PRN (17:30)
[2017-06-28] MEDS: BUTALB/APAP/CAFEIN 50/325/40MG TABLET. PO PRN (21:15)
[2017-06-28 21:17] LABS: HSV 1&2 IGM <0.91 Ratio (0.00-0.90)
[2017-06-29 03:43] VITALS: BP 105/59
[2017-06-29 06:01] LABS: CALCIUM 8.3 mg/dL (8.5-10.1); CREATININE 0.8 mg/dL (0.6-1.0); GFR 97.1; POTASSIUM 3.9 mmol/L (3.5-5.1)
[2017-06-29 06:10] LABS: BASO # 0.1 x10^3/uL (0.0-0.2); BASO % 1 % (0-3); EOS % 1 % (0-3); HEMATOCRIT 36.2 % (36.0-47.0); HEMOGLOBIN 11.7 g/dL (12.0-15.5); LYMPH # 2.7 x10^3/uL (1.0-4.8); LYMPH % 35 % (24-48); MEAN CORPUSCULAR HEMOGLOBIN 27 pg (25-35); MEAN CORPUSCULAR HGB CONC 32 g/dL (31-37); MEAN CORPUSCULAR VOLUME 83 fL (79-100); MONO % 8 % (0-9); NEUT % 55 % (31-73); PLATELET COUNT 347 x10^3/uL (140-400); RED BLOOD COUNT 4.37 x10^6/uL (3.50-5.40); RED CELL DISTRIBUTION WIDTH 14.5 % (11.5-14.5); WHITE BLOOD COUNT 7.6 x10^3/uL (4.0-11.0)
[2017-06-29 07:37] VITALS: BP 114/77
[2017-06-29] MEDS: POTASSIUM CHLORIDE 20 MEQ TABLET.ER. PO SCH (08:28)
[2017-06-29] MEDS: valACYclovir 500 MG TABLET. PO SCH (08:28)
[2017-06-29] MEDS: IBUPROFEN 800 MG TABLET. PO SCH ×2 (08:29→08:36)
[2017-06-29] MEDS: ENOXAPARIN 40 MG/0.4 ML SYRINGE. SQ SCH (08:30)
[2017-06-29] MEDS: LACTOBACILLUS RHAMNOSUS GG 1 CAPSULE. PO SCH (08:30)
[2017-06-29] MEDS: LIDOCAINE (700MG/PATCH) PATCH. TD SCH (08:35)
[2017-06-29] MEDS: BUTALB/APAP/CAFEIN 50/325/40MG TABLET. PO PRN (09:09)
--- NOTE | 2017-06-29 09:38 | PDOC ---
PROGRESS NOTES Subjective Subjective She admits stomach upset and does not feel like eating breakfast. Objective Objective Vital Signs Date Time Temp Pulse Resp B/P (MAP) Pulse Ox O2 Delivery O2 Flow Rate FiO2 06/29/17 07:37 98.1 61 16 114/77 (89) 100 Room Air 98.1 Intake and Output 06/29/17 07:00 Intake Total 150 ml Balance 150 ml Intake Oral 150 ml # Voids 2 Physical Exam Physical Exam She is alert and remains independent with her mobility.She probably getting gastritis from ibuprofen. Assessment Assessment Problems Medical Problems: (1) Abdominal pain Status: Acute (2) Diarrhea Status: Acute (3) Hypokalemia Status: Acute (4) Nausea and vomiting Status: Acute Plan Plan of Care To d/c ibuprofen and try protonix. Home when medically stable. Comment Review of Relevant I have reviewed the following items antelmo (where applicable) has been applied. Labs Laboratory Tests Test 06/29/17 04:43 White Blood Count 7.6 x10^3/uL (4.0-11.0) Red Blood Count 4.37 x10^6/uL (3.50-5.40) Hemoglobin 11.7 g/dL (12.0-15.5) Hematocrit 36.2 % (36.0-47.0) Mean Corpuscular Volume 83 fL (79-100) Mean Corpuscular Hemoglobin 27 pg (25-35) Mean Corpuscular Hemoglobin Concent 32 g/dL (31-37) Red Cell Distribution Width 14.5 % (11.5-14.5) Platelet Count 347 x10^3/uL (140-400) Neutrophils (%) (Auto) 55 % (31-73) Lymphocytes (%) (Auto) 35 % (24-48) Monocytes (%) (Auto) 8 % (0-9) Eosinophils (%) (Auto) 1 % (0-3) Basophils (%) (Auto) 1 % (0-3) Neutrophils # (Auto) 4.2 x10^3uL (1.8-7.7) Lymphocytes # (Auto) 2.7 x10^3/uL (1.0-4.8) Monocytes # (Auto) 0.6 x10^3/uL (0.0-1.1) Eosinophils # (Auto) 0.1 x10^3/uL (0.0-0.7) Basophils # (Auto) 0.1 x10^3/uL (0.0-0.2) Sodium Level 141 mmol/L (136-145) Potassium Level 3.9 mmol/L (3.5-5.1) Chloride Level 104 mmol/L (98-107) Carbon Dioxide Level 23 mmol/L (21-32) Anion Gap 14 (6-14) Blood Urea Nitrogen 7 mg/dL (7-20) Creatinine 0.8 mg/dL (0.6-1.0) Estimated GFR (Cockcroft-Gault) 97.1 Glucose Level 77 mg/dL (70-99) Calcium Level 8.3 mg/dL (8.5-10.1) Laboratory Tests Test 06/29/17 04:43 White Blood Count 7.6 x10^3/uL (4.0-11.0) Red Blood Count 4.37 x10^6/uL (3.50-5.40) Hemoglobin 11.7 g/dL (12.0-15.5) Hematocrit 36.2 % (36.0-47.0) Mean Corpuscular Volume 83 fL (79-100) Mean Corpuscular Hemoglobin 27 pg (25-35) Mean Corpuscular Hemoglobin Concent 32 g/dL (31-37) Red Cell Distribution Width 14.5 % (11.5-14.5) Platelet Count 347 x10^3/uL (140-400) Neutrophils (%) (Auto) 55 % (31-73) Lymphocytes (%) (Auto) 35 % (24-48) Monocytes (%) (Auto) 8 % (0-9) Eosinophils (%) (Auto) 1 % (0-3) Basophils (%) (Auto) 1 % (0-3) Neutrophils # (Auto) 4.2 x10^3uL (1.8-7.7) Lymphocytes # (Auto) 2.7 x10^3/uL (1.0-4.8) Monocytes # (Auto) 0.6 x10^3/uL (0.0-1.1) Eosinophils # (Auto) 0.1 x10^3/uL (0.0-0.7) Basophils # (Auto) 0.1 x10^3/uL (0.0-0.2) Sodium Level 141 mmol/L (136-145) Potassium Level 3.9 mmol/L (3.5-5.1) Chloride Level 104 mmol/L (98-107) Carbon Dioxide Level 23 mmol/L (21-32) Anion Gap 14 (6-14) Blood Urea Nitrogen 7 mg/dL (7-20) Creatinine 0.8 mg/dL (0.6-1.0) Estimated GFR (Cockcroft-Gault) 97.1 Glucose Level 77 mg/dL (70-99) Calcium Level 8.3 mg/dL (8.5-10.1) Microbiology 06/25/17 Blood Culture - Preliminary, Resulted NO GROWTH AFTER 3 DAYS 06/25/17 Gram Stain - Final, Complete 06/26/17 Urine Culture - Final, Complete 06/26/17 Urine Culture Result 1 (DORINDA) - Final, Complete 06/26/17 Urine Culture Result 2 (DORINDA) - Final, Complete 06/26/17 Antimicrobic Susceptibility - Final, Complete Medications Current Medications Sodium Chloride 1,000 ml @ 1,000 mls/hr 1X ONCE IV Last administered on 06/25 14:38; Start 06/25/17 at 14:15; Stop 06/25/17 at 15:14; Status DC Famotidine (Pepcid Vial) 20 mg 1X ONCE IVP Last administered on 06/25/17 14: 37; Start 06/25/17 at 14:15; Stop 06/25/17 at 14:32; Status DC Ondansetron HCl (Zofran) 4 mg 1X ONCE IV Last administered on 06/25/17 14:37 ; Start 06/25/17 at 14:15; Stop 06/25/17 at 14:32; Status DC Acetaminophen (Tylenol) 500 mg 1X ONCE PO Last administered on 06/25/17 14: 37; Start 06/25/17 at 14:30; Stop 06/25/17 at 14:32; Status DC Acetaminophen (Tylenol) 1,000 mg 1X ONCE PO ; Start 06/25/17 at 15:00; Stop 06/25/17 at 15:01; Status DC Ibuprofen (Motrin) 800 mg 1X ONCE PO Last administered on 06/25/17 15:00; Start 06/25/17 at 15:00; Stop 06/25/17 at 15:01; Status DC Iohexol (Omnipaque 300 Mg/ml) 75 ml 1X ONCE IV Last administered on 15:58; Start 06/25/17 at 15:15; Stop 06/25/17 at 15:16; Status DC Info (Do NOT chart on this entry -- for MONITORING) 1 each PRN DAILY PRN MC SEE COMMENTS; Start 06/25/17 at 15:15; Stop 06/27/17 at 15:14; Status DC Potassium Chloride (KCl Oral Soln) 40 meq 1X ONCE PO Last administered on 15:33; Start 06/25/17 at 15:15; Stop 06/25/17 at 15:16; Status DC Sodium Chloride 1,000 ml @ 1,000 mls/hr 1X ONCE IV Last administered on 06/25 18:20; Start 06/25/17 at 15:15; Stop 06/25/17 at 16:14; Status DC Fentanyl Citrate (Fentanyl 2ml Vial) 50 mcg 1X ONCE IV Last administered on 15:34; Start 06/25/17 at 15:30; Stop 06/25/17 at 15:31; Status DC Fentanyl Citrate (Fentanyl 2ml Vial) 50 mcg 1X ONCE IV Last administered on 16:16; Start 06/25/17 at 16:15; Stop 06/25/17 at 16:16; Status DC Lidocaine HCl (Xylocaine-Mpf 1% Vial) 2 ml STK-MED ONCE .ROUTE ; Start at 16:25; Stop 06/25/17 at 16:26; Status DC Sodium Chloride (NORMAL SALINE FLUSH for STERILE FIELD) 10 ml STK-MED ONCE .ROUTE ; Start 06/25/17 at 16:33; Stop 06/25/17 at 16:34; Status DC Fentanyl Citrate (Fentanyl 2ml Vial) 50 mcg PRN Q30MIN PRN IV SEVERE PAIN Last administered on 06/26/17 00:08; Start 06/25/17 at 19:30; Stop 06/26/17 at 00 :08; Status DC Piperacillin Sod/ Tazobactam Sod (Zosyn Per Pharmacy) 1 each PRN DAILY PRN MC SEE COMMENTS; Start 06/25/17 at 20:15; Stop 06/26/17 at 15:57; Status DC Vancomycin HCl (Vanco Per Pharmacy) 1 each PRN DAILY PRN MC SEE COMMENTS Last administered on 06/26/17 11:39; Start 06/25/17 at 20:15; Stop 06/26/17 at 15 :09; Status DC Ondansetron HCl (Zofran) 4 mg PRN Q8HRS PRN IV NAUSEA/VOMITING; Start at 20:15; Stop 06/26/17 at 20:14; Status DC Morphine Sulfate 2 mg PRN Q2HR PRN IV PAIN Last administered on 06/26/17 05: 17; Start 06/25/17 at 20:15; Stop 06/26/17 at 20:14; Status DC Sodium Chloride 1,000 ml @ 100 mls/hr Q10H IV Last administered on 06/26/17 10:03; Start 06/25/17 at 20:13; Stop 06/26/17 at 20:12; Status DC Vancomycin HCl 1.75 gm/Dextrose/ Sodium Chloride 500 ml @ 250 mls/hr 1X ONCE IV Last administered on 06/25/17 21:26; Start 06/25/17 at 20:30; Stop 06/25 at 22:29; Status DC Piperacillin Sod/ Tazobactam Sod (Zosyn) 3.375 gm ONCE ONCE IVP Last administered on 06/25/17 21:22; Start 06/25/17 at 20:30; Stop 06/25/17 at 20 :31; Status DC Piperacillin Sod/ Tazobactam Sod (Zosyn) 3.375 gm Q6HRS IVP Last administered on 06/26/17 14:26; Start 06/26/17 at 06:00; Stop 06/26/17 at 15:48; Status DC Vancomycin HCl 1 gm/Sodium Chloride 500 ml @ 500 mls/hr Q24H IV ; Start at 21:00; Stop 06/26/17 at 21:00; Status DC Vancomycin HCl 1 each 1X ONCE MC ; Start 06/27/17 at 23:30; Stop 06/27/17 at 23:30; Status DC Potassium Chloride (Klor-Con) 20 meq DAILYWBKFT PO Last administered on 08:28; Start 06/26/17 at 08:00 Zolpidem Tartrate (Ambien) 5 mg PRN QHS PRN PO INSOMNIA Last administered on 22:27; Start 06/26/17 at 01:00 Ketorolac Tromethamine (Toradol) 15 mg 1X ONCE IV Last administered on 10:03; Start 06/26/17 at 09:00; Stop 06/26/17 at 09:01; Status DC Acetaminophen/ Butalbital/ Caffeine (Fioricet) 1 tab PRN Q6HRS PRN PO MIGRAINE HEADACHE Last administered on 06/29/17 09:09; Start 06/26/17 at 08:15 Enoxaparin Sodium (Lovenox Per Pharmacy Prophylaxis Dosing) 1 each PRN DAILY PRN MC SEE COMMENTS; Start 06/26/17 at 08:30 Enoxaparin Sodium (Lovenox 40mg Syringe) 40 mg Q24H SQ Last administered on 08:30; Start 06/26/17 at 09:00 Lactobacillus Rhamnosus (Culturelle) 1 cap BID PO Last administered on 08:30; Start 06/26/17 at 21:00 Vancomycin HCl 1 gm/Sodium Chloride 500 ml @ 500 mls/hr Q12H IV Last administered on 06/26/17 14:29; Start 06/26/17 at 12:00; Stop 06/26/17 at 15 :08; Status DC Acyclovir Sodium 520 mg/Dextrose 60.4 ml @ 60.4 mls/hr Q8HRS IV ; Start at 22:00; Status UNV Valacyclovir HCl (Valtrex) 1,000 mg BID PO Last administered on 06/29/17 08: 28; Start 06/26/17 at 16:00 Ketorolac Tromethamine (Toradol) 30 mg PRN Q6HRS PRN IV PAIN Last administered on 06/28/17 14:26; Start 06/26/17 at 18:30; Stop 07/01/17 at 18:29 Acetaminophen/ Hydrocodone Bitart (Lortab 5/325) 1 tab PRN Q4HRS PRN PO PAIN Last administered on 06/28/17 16:40; Start 06/26/17 at 18:30 Lidocaine (Lidoderm) 1 patch DAILY TD Last administered on 06/29/17 08:35; Start 06/27/17 at 11:30 Ibuprofen (Motrin) 800 mg TID PO Last administered on 06/28/17 09:40; Start 06/28/17 at 09:30 Prochlorperazine Edisylate (Compazine) 10 mg PRN Q8HRS PRN IV NAUSEA/VOMITING Last administered on 06/28/17 14:26; Start 06/28/17 at 13:15 Influenza Virus Vaccine Quadrival (Fluarix Quad 2887-3200 Syringe) 0.5 ml ONCE ONCE VAX IM ; Start 06/28/17 at 15:00; Stop 06/28/17 at 15:01; Status DC Fentanyl Citrate (Fentanyl 2ml Vial) 25 mcg PRN Q2HR PRN IV PAIN; Start at 17:30 Vitals/I & O Vital Sign - Last 24 Hours 06/28/17 06/28/17 06/28/17 06/28/17 11:00 11:14 15:00 16:40 Temp 97.8 98.0 97.8 98.0 Pulse 50 51 Resp 16 16 B/P (MAP) 111/64 (80) 126/77 (93) Pulse Ox 100 100 100 100 O2 Delivery Room Air Room Air Room Air Room Air 06/28/17 06/28/17 06/28/17 06/29/17 19:40 20:00 23:31 03:43 Temp 97.6 98.7 98.2 97.6 98.7 98.2 Pulse 51 53 59 Resp 16 16 16 B/P (MAP) 112/62 (79) 120/70 (87) 105/59 (74) Pulse Ox 100 93 98 O2 Delivery Room Air Room Air Room Air Room Air 06/29/17 07:37 Temp 98.1 98.1 Pulse 61 Resp 16 B/P (MAP) 114/77 (89) Pulse Ox 100 O2 Delivery Room Air Intake and Output 06/28/17 06/28/17 06/29/17 15:00 23:00 07:00 Intake Total 150 ml 0 ml Balance 150 ml 0 ml JULEE SILVERMAN MD Jun 29, 2017 09:38
[2017-06-29] MEDS ORDERED: PANTOPRAZOLE 40 MG TABLET.DR. PO SCH (10:00)
--- NOTE | 2017-06-29 10:21 | PDOC ---
Infectious Disease Note Subjective Subjective Pt waiting for [place] papers for work to be filled out, has low apetite but improving no f/c/n/v/d/abdo pain this am ROS ROS GEN: Denies fevers, chills, sweats HEENT: Denies blurred vision, sore throat CV: Denies chest pain RESP: Denies shortness of air, cough GI: Denies n/v/d NEURO: Denies confusion, dizziness MSK: Denies weakness, joint pain/swelling Vital Sign Vital Signs Vital Signs Date Time Temp Pulse Resp B/P (MAP) Pulse Ox O2 Delivery O2 Flow Rate FiO2 06/29/17 07:37 98.1 61 16 114/77 (89) 100 Room Air 98.1 Physical Exam PHYSICAL EXAM GENERAL: NAD, Alert HEENT: PERRL, OC/OP NECK: Supple, no JVD, no LN LUNGS: Clear HEART: S1S2, no gallop, no murmur ABD: Soft, NT, no organomegaly, no rebound EXT: No edema, no cyanosis 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, 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, no focal neurologic deficit SKIN: skin rash gluteal fold scabbed IV: ok Labs Lab Laboratory Tests Test 06/29/17 04:43 White Blood Count 7.6 x10^3/uL (4.0-11.0) Red Blood Count 4.37 x10^6/uL (3.50-5.40) Hemoglobin 11.7 g/dL (12.0-15.5) Hematocrit 36.2 % (36.0-47.0) Mean Corpuscular Volume 83 fL (79-100) Mean Corpuscular Hemoglobin 27 pg (25-35) Mean Corpuscular Hemoglobin Concent 32 g/dL (31-37) Red Cell Distribution Width 14.5 % (11.5-14.5) Platelet Count 347 x10^3/uL (140-400) Neutrophils (%) (Auto) 55 % (31-73) Lymphocytes (%) (Auto) 35 % (24-48) Monocytes (%) (Auto) 8 % (0-9) Eosinophils (%) (Auto) 1 % (0-3) Basophils (%) (Auto) 1 % (0-3) Neutrophils # (Auto) 4.2 x10^3uL (1.8-7.7) Lymphocytes # (Auto) 2.7 x10^3/uL (1.0-4.8) Monocytes # (Auto) 0.6 x10^3/uL (0.0-1.1) Eosinophils # (Auto) 0.1 x10^3/uL (0.0-0.7) Basophils # (Auto) 0.1 x10^3/uL (0.0-0.2) Sodium Level 141 mmol/L (136-145) Potassium Level 3.9 mmol/L (3.5-5.1) Chloride Level 104 mmol/L (98-107) Carbon Dioxide Level 23 mmol/L (21-32) Anion Gap 14 (6-14) Blood Urea Nitrogen 7 mg/dL (7-20) Creatinine 0.8 mg/dL (0.6-1.0) Estimated GFR (Cockcroft-Gault) 97.1 Glucose Level 77 mg/dL (70-99) Calcium Level 8.3 mg/dL (8.5-10.1) Micro bc neg csf neg Objective Assessment headache viral rash ? hsv infection stable e coli uti nausea,vomiting,diarrhea resolved Plan Plan of Care Start augmentin for 3 days for cystitis on valtrex needs total 10 days encouraged inc fluid intake OK to dc from ID standpoint f/u with pcp as outpt in 10-14 days GRAHAM MAIER MD Jun 29, 2017 10:21
[2017-06-29] MEDS ORDERED: AMOXICILLIN/K CLAV 875/125MG TABLET. PO SCH (11:30)
[2017-06-29 11:41] VITALS: BP 107/63
--- NOTE | 2017-06-29 12:46 | PDOC ---
PROGRESS NOTES Chief Complaint Chief Complaint Sepsis Fever Leukocytosis Headache Abdominal pain Neck pain History of Present Illness History of Present Illness Patient tolerating food WBC count is down VSS Discussed with patient the possibility of going home today Infectious disease is ok with DC Vitals Vitals Vital Signs Date Time Temp Pulse Resp B/P (MAP) Pulse Ox O2 Delivery O2 Flow Rate FiO2 06/29/17 11:41 98.0 54 16 107/63 (78) 99 Room Air 98.0 Physical Exam General: Alert, Oriented X3, Cooperative, No acute distress Heart: Regular rate Lungs: Clear Abdomen: Normal bowel sounds, Soft Extremities: No clubbing, No edema Skin: No rashes, No significant lesion Labs LABS Laboratory Tests Test 06/29/17 04:43 White Blood Count 7.6 x10^3/uL (4.0-11.0) Red Blood Count 4.37 x10^6/uL (3.50-5.40) Hemoglobin 11.7 g/dL (12.0-15.5) Hematocrit 36.2 % (36.0-47.0) Mean Corpuscular Volume 83 fL (79-100) Mean Corpuscular Hemoglobin 27 pg (25-35) Mean Corpuscular Hemoglobin Concent 32 g/dL (31-37) Red Cell Distribution Width 14.5 % (11.5-14.5) Platelet Count 347 x10^3/uL (140-400) Neutrophils (%) (Auto) 55 % (31-73) Lymphocytes (%) (Auto) 35 % (24-48) Monocytes (%) (Auto) 8 % (0-9) Eosinophils (%) (Auto) 1 % (0-3) Basophils (%) (Auto) 1 % (0-3) Neutrophils # (Auto) 4.2 x10^3uL (1.8-7.7) Lymphocytes # (Auto) 2.7 x10^3/uL (1.0-4.8) Monocytes # (Auto) 0.6 x10^3/uL (0.0-1.1) Eosinophils # (Auto) 0.1 x10^3/uL (0.0-0.7) Basophils # (Auto) 0.1 x10^3/uL (0.0-0.2) Sodium Level 141 mmol/L (136-145) Potassium Level 3.9 mmol/L (3.5-5.1) Chloride Level 104 mmol/L (98-107) Carbon Dioxide Level 23 mmol/L (21-32) Anion Gap 14 (6-14) Blood Urea Nitrogen 7 mg/dL (7-20) Creatinine 0.8 mg/dL (0.6-1.0) Estimated GFR (Cockcroft-Gault) 97.1 Glucose Level 77 mg/dL (70-99) Calcium Level 8.3 mg/dL (8.5-10.1) Review of Systems Review of Systems Denies dyspnea or SOA Patient was A&O x3 without any dizziness Assessment and Plan Assessmemt and Plan Problems Medical Problems: (1) Abdominal pain Status: Acute (2) Diarrhea Status: Acute (3) Hypokalemia Status: Acute (4) Nausea and vomiting Status: Acute Assessment Sepsis Fever Leukocytosis Headache Abdominal pain Neck pain Plan Discharge home hopefully today Follow up PCP 1-2 weeks Continue prn pain medications Continue home medications Problems: Comment Review of Relevant I have reviewed the following items antelmo (where applicable) has been applied. Labs Laboratory Tests Test 06/29/17 04:43 White Blood Count 7.6 x10^3/uL (4.0-11.0) Red Blood Count 4.37 x10^6/uL (3.50-5.40) Hemoglobin 11.7 g/dL (12.0-15.5) Hematocrit 36.2 % (36.0-47.0) Mean Corpuscular Volume 83 fL (79-100) Mean Corpuscular Hemoglobin 27 pg (25-35) Mean Corpuscular Hemoglobin Concent 32 g/dL (31-37) Red Cell Distribution Width 14.5 % (11.5-14.5) Platelet Count 347 x10^3/uL (140-400) Neutrophils (%) (Auto) 55 % (31-73) Lymphocytes (%) (Auto) 35 % (24-48) Monocytes (%) (Auto) 8 % (0-9) Eosinophils (%) (Auto) 1 % (0-3) Basophils (%) (Auto) 1 % (0-3) Neutrophils # (Auto) 4.2 x10^3uL (1.8-7.7) Lymphocytes # (Auto) 2.7 x10^3/uL (1.0-4.8) Monocytes # (Auto) 0.6 x10^3/uL (0.0-1.1) Eosinophils # (Auto) 0.1 x10^3/uL (0.0-0.7) Basophils # (Auto) 0.1 x10^3/uL (0.0-0.2) Sodium Level 141 mmol/L (136-145) Potassium Level 3.9 mmol/L (3.5-5.1) Chloride Level 104 mmol/L (98-107) Carbon Dioxide Level 23 mmol/L (21-32) Anion Gap 14 (6-14) Blood Urea Nitrogen 7 mg/dL (7-20) Creatinine 0.8 mg/dL (0.6-1.0) Estimated GFR (Cockcroft-Gault) 97.1 Glucose Level 77 mg/dL (70-99) Calcium Level 8.3 mg/dL (8.5-10.1) Laboratory Tests Test 06/29/17 04:43 White Blood Count 7.6 x10^3/uL (4.0-11.0) Red Blood Count 4.37 x10^6/uL (3.50-5.40) Hemoglobin 11.7 g/dL (12.0-15.5) Hematocrit 36.2 % (36.0-47.0) Mean Corpuscular Volume 83 fL (79-100) Mean Corpuscular Hemoglobin 27 pg (25-35) Mean Corpuscular Hemoglobin Concent 32 g/dL (31-37) Red Cell Distribution Width 14.5 % (11.5-14.5) Platelet Count 347 x10^3/uL (140-400) Neutrophils (%) (Auto) 55 % (31-73) Lymphocytes (%) (Auto) 35 % (24-48) Monocytes (%) (Auto) 8 % (0-9) Eosinophils (%) (Auto) 1 % (0-3) Basophils (%) (Auto) 1 % (0-3) Neutrophils # (Auto) 4.2 x10^3uL (1.8-7.7) Lymphocytes # (Auto) 2.7 x10^3/uL (1.0-4.8) Monocytes # (Auto) 0.6 x10^3/uL (0.0-1.1) Eosinophils # (Auto) 0.1 x10^3/uL (0.0-0.7) Basophils # (Auto) 0.1 x10^3/uL (0.0-0.2) Sodium Level 141 mmol/L (136-145) Potassium Level 3.9 mmol/L (3.5-5.1) Chloride Level 104 mmol/L (98-107) Carbon Dioxide Level 23 mmol/L (21-32) Anion Gap 14 (6-14) Blood Urea Nitrogen 7 mg/dL (7-20) Creatinine 0.8 mg/dL (0.6-1.0) Estimated GFR (Cockcroft-Gault) 97.1 Glucose Level 77 mg/dL (70-99) Calcium Level 8.3 mg/dL (8.5-10.1) Microbiology 06/25/17 Blood Culture - Preliminary, Resulted NO GROWTH AFTER 3 DAYS 06/25/17 Gram Stain - Final, Complete 06/26/17 Urine Culture - Final, Complete 06/26/17 Urine Culture Result 1 (DORINDA) - Final, Complete 06/26/17 Urine Culture Result 2 (DORINDA) - Final, Complete 06/26/17 Antimicrobic Susceptibility - Final, Complete Medications Current Medications Sodium Chloride 1,000 ml @ 1,000 mls/hr 1X ONCE IV Last administered on 06/25 14:38; Start 06/25/17 at 14:15; Stop 06/25/17 at 15:14; Status DC Famotidine (Pepcid Vial) 20 mg 1X ONCE IVP Last administered on 06/25/17 14: 37; Start 06/25/17 at 14:15; Stop 06/25/17 at 14:32; Status DC Ondansetron HCl (Zofran) 4 mg 1X ONCE IV Last administered on 06/25/17 14:37 ; Start 06/25/17 at 14:15; Stop 06/25/17 at 14:32; Status DC Acetaminophen (Tylenol) 500 mg 1X ONCE PO Last administered on 06/25/17 14: 37; Start 06/25/17 at 14:30; Stop 06/25/17 at 14:32; Status DC Acetaminophen (Tylenol) 1,000 mg 1X ONCE PO ; Start 06/25/17 at 15:00; Stop 06/25/17 at 15:01; Status DC Ibuprofen (Motrin) 800 mg 1X ONCE PO Last administered on 06/25/17 15:00; Start 06/25/17 at 15:00; Stop 06/25/17 at 15:01; Status DC Iohexol (Omnipaque 300 Mg/ml) 75 ml 1X ONCE IV Last administered on 15:58; Start 06/25/17 at 15:15; Stop 06/25/17 at 15:16; Status DC Info (Do NOT chart on this entry -- for MONITORING) 1 each PRN DAILY PRN MC SEE COMMENTS; Start 06/25/17 at 15:15; Stop 06/27/17 at 15:14; Status DC Potassium Chloride (KCl Oral Soln) 40 meq 1X ONCE PO Last administered on 15:33; Start 06/25/17 at 15:15; Stop 06/25/17 at 15:16; Status DC Sodium Chloride 1,000 ml @ 1,000 mls/hr 1X ONCE IV Last administered on 06/25 18:20; Start 06/25/17 at 15:15; Stop 06/25/17 at 16:14; Status DC Fentanyl Citrate (Fentanyl 2ml Vial) 50 mcg 1X ONCE IV Last administered on 15:34; Start 06/25/17 at 15:30; Stop 06/25/17 at 15:31; Status DC Fentanyl Citrate (Fentanyl 2ml Vial) 50 mcg 1X ONCE IV Last administered on 16:16; Start 06/25/17 at 16:15; Stop 06/25/17 at 16:16; Status DC Lidocaine HCl (Xylocaine-Mpf 1% Vial) 2 ml STK-MED ONCE .ROUTE ; Start at 16:25; Stop 06/25/17 at 16:26; Status DC Sodium Chloride (NORMAL SALINE FLUSH for STERILE FIELD) 10 ml STK-MED ONCE .ROUTE ; Start 06/25/17 at 16:33; Stop 06/25/17 at 16:34; Status DC Fentanyl Citrate (Fentanyl 2ml Vial) 50 mcg PRN Q30MIN PRN IV SEVERE PAIN Last administered on 06/26/17 00:08; Start 06/25/17 at 19:30; Stop 06/26/17 at 00 :08; Status DC Piperacillin Sod/ Tazobactam Sod (Zosyn Per Pharmacy) 1 each PRN DAILY PRN MC SEE COMMENTS; Start 06/25/17 at 20:15; Stop 06/26/17 at 15:57; Status DC Vancomycin HCl (Vanco Per Pharmacy) 1 each PRN DAILY PRN MC SEE COMMENTS Last administered on 06/26/17 11:39; Start 06/25/17 at 20:15; Stop 06/26/17 at 15 :09; Status DC Ondansetron HCl (Zofran) 4 mg PRN Q8HRS PRN IV NAUSEA/VOMITING; Start at 20:15; Stop 06/26/17 at 20:14; Status DC Morphine Sulfate 2 mg PRN Q2HR PRN IV PAIN Last administered on 06/26/17 05: 17; Start 06/25/17 at 20:15; Stop 06/26/17 at 20:14; Status DC Sodium Chloride 1,000 ml @ 100 mls/hr Q10H IV Last administered on 06/26/17 10:03; Start 06/25/17 at 20:13; Stop 06/26/17 at 20:12; Status DC Vancomycin HCl 1.75 gm/Dextrose/ Sodium Chloride 500 ml @ 250 mls/hr 1X ONCE IV Last administered on 06/25/17 21:26; Start 06/25/17 at 20:30; Stop 06/25 at 22:29; Status DC Piperacillin Sod/ Tazobactam Sod (Zosyn) 3.375 gm ONCE ONCE IVP Last administered on 06/25/17 21:22; Start 06/25/17 at 20:30; Stop 06/25/17 at 20 :31; Status DC Piperacillin Sod/ Tazobactam Sod (Zosyn) 3.375 gm Q6HRS IVP Last administered on 06/26/17 14:26; Start 06/26/17 at 06:00; Stop 06/26/17 at 15:48; Status DC Vancomycin HCl 1 gm/Sodium Chloride 500 ml @ 500 mls/hr Q24H IV ; Start at 21:00; Stop 06/26/17 at 21:00; Status DC Vancomycin HCl 1 each 1X ONCE MC ; Start 06/27/17 at 23:30; Stop 06/27/17 at 23:30; Status DC Potassium Chloride (Klor-Con) 20 meq DAILYWBKFT PO Last administered on 08:28; Start 06/26/17 at 08:00 Zolpidem Tartrate (Ambien) 5 mg PRN QHS PRN PO INSOMNIA Last administered on 22:27; Start 06/26/17 at 01:00 Ketorolac Tromethamine (Toradol) 15 mg 1X ONCE IV Last administered on 10:03; Start 06/26/17 at 09:00; Stop 06/26/17 at 09:01; Status DC Acetaminophen/ Butalbital/ Caffeine (Fioricet) 1 tab PRN Q6HRS PRN PO MIGRAINE HEADACHE Last administered on 06/29/17 09:09; Start 06/26/17 at 08:15 Enoxaparin Sodium (Lovenox Per Pharmacy Prophylaxis Dosing) 1 each PRN DAILY PRN MC SEE COMMENTS; Start 06/26/17 at 08:30 Enoxaparin Sodium (Lovenox 40mg Syringe) 40 mg Q24H SQ Last administered on 08:30; Start 06/26/17 at 09:00 Lactobacillus Rhamnosus (Culturelle) 1 cap BID PO Last administered on 08:30; Start 06/26/17 at 21:00 Vancomycin HCl 1 gm/Sodium Chloride 500 ml @ 500 mls/hr Q12H IV Last administered on 06/26/17 14:29; Start 06/26/17 at 12:00; Stop 06/26/17 at 15 :08; Status DC Acyclovir Sodium 520 mg/Dextrose 60.4 ml @ 60.4 mls/hr Q8HRS IV ; Start at 22:00; Status UNV Valacyclovir HCl (Valtrex) 1,000 mg BID PO Last administered on 06/29/17 08: 28; Start 06/26/17 at 16:00 Ketorolac Tromethamine (Toradol) 30 mg PRN Q6HRS PRN IV PAIN Last administered on 06/28/17 14:26; Start 06/26/17 at 18:30; Stop 07/01/17 at 18:29 Acetaminophen/ Hydrocodone Bitart (Lortab 5/325) 1 tab PRN Q4HRS PRN PO PAIN Last administered on 06/28/17 16:40; Start 06/26/17 at 18:30 Lidocaine (Lidoderm) 1 patch DAILY TD Last administered on 06/29/17 08:35; Start 06/27/17 at 11:30 Ibuprofen (Motrin) 800 mg TID PO Last administered on 06/28/17 09:40; Start 06/28/17 at 09:30; Stop 06/29/17 at 09:39; Status DC Prochlorperazine Edisylate (Compazine) 10 mg PRN Q8HRS PRN IV NAUSEA/VOMITING Last administered on 06/28/17 14:26; Start 06/28/17 at 13:15 Influenza Virus Vaccine Quadrival (Fluarix Quad [id number] Syringe) 0.5 ml ONCE ONCE VAX IM ; Start 06/28/17 at 15:00; Stop 06/28/17 at 15:01; Status DC Fentanyl Citrate (Fentanyl 2ml Vial) 25 mcg PRN Q2HR PRN IV PAIN; Start at 17:30 Pantoprazole Sodium (Protonix) 40 mg DAILYAC PO Last administered on 11:21; Start 06/29/17 at 10:00 Amoxicillin/ Clavulanate Potassium (Augmentin 875/ 125mg) 1 tab BID PO Last administered on 06/29/17 11:20; Start 06/29/17 at 11:30 Vitals/I & O Vital Sign - Last 24 Hours 06/28/17 06/28/17 06/28/17 06/28/17 15:00 16:40 19:40 20:00 Temp 98.0 97.6 98.0 97.6 Pulse 51 51 Resp 16 16 B/P (MAP) 126/77 (93) 112/62 (79) Pulse Ox 100 100 100 O2 Delivery Room Air Room Air Room Air Room Air 06/28/17 06/29/17 06/29/17 06/29/17 23:31 03:43 07:37 08:15 Temp 98.7 98.2 98.1 98.7 98.2 98.1 Pulse 53 59 61 Resp 16 16 16 B/P (MAP) 120/70 (87) 105/59 (74) 114/77 (89) Pulse Ox 93 98 100 O2 Delivery Room Air Room Air Room Air Room Air 06/29/17 11:41 Temp 98.0 98.0 Pulse 54 Resp 16 B/P (MAP) 107/63 (78) Pulse Ox 99 O2 Delivery Room Air Intake and Output 06/28/17 06/28/17 06/29/17 14:59 22:59 06:59 Intake Total 150 ml 0 ml Balance 150 ml 0 ml SHANNAN HINTON III DO Jun 29, 2017 12:46
[2017-06-29] MEDS: HYDROcodone/APAP 5/325MG 1 TAB TABLET PO PRN (14:29)
[2017-06-29 15:00] VITALS: BP 115/68
[2017-06-29 22:17] LABS: HERPES SIMPLEX TYPE 1 Negative (Negative); HERPES SIMPLEX TYPE 2 Negative (Negative)
== END 2017-06-29 16:40 | disposition home or self-care (01) | DRG 872 ==
LOC: ER 13:44 → 6 SOUTH 20:18
PROVIDERS: ADMIT Internal Medicine; ATTEND Internal Medicine
PROC: 009U3ZX Drainage of Spinal Canal, Percutaneous Approach, Diagnostic (ICD-10-PCS; principal; 2017-06-25)
DX: A41.9 Sepsis, unspecified organism (principal); E87.6 Hypokalemia; N39.0 Urinary tract infection, site not specified; R21 Rash and other nonspecific skin eruption; B96.20 Unspecified Escherichia coli [E. coli] as the cause of diseases classified elsewhere; Z80.9 Family history of malignant neoplasm, unspecified
CPT/HCPCS: 36415; 62270; 70551; 71020; 74022; 74177; 80048; 80053; 80074; 80076; 81001; 81025; 82945; 83605; 83690; 83735; 84146; 84157; 84443; 85007; 85025; 85651; 86140; 86593; 86703; 87040; 87086; 87205; 87529; 87804; 89051; 90686; 93005; 96374; 96375; 96376; J0780; J1650; J1885; J2270; J2405; J2543; J3010; J3370; J7030; Q9967; S0028; 99285-25

== ENCOUNTER 2017-07-01 11:37 | Emergency (ER) | payer BC ==
[2017-07-01 12:02] LABS: URINE HCG POC HCG NEGATIVE (Negative)
[2017-07-01 12:57] LABS: ADD MAN DIFF? NO
[2017-07-01 12:59] LABS: BASO # 0.1 x10^3/uL (0.0-0.2); BASO % 1 % (0-3); EOS % 1 % (0-3); HEMATOCRIT 39.8 % (36.0-47.0); HEMOGLOBIN 12.9 g/dL (12.0-15.5); LYMPH # 1.6 x10^3/uL (1.0-4.8); LYMPH % 13 % (24-48); MEAN CORPUSCULAR HEMOGLOBIN 27 pg (25-35); MEAN CORPUSCULAR HGB CONC 32 g/dL (31-37); MEAN CORPUSCULAR VOLUME 83 fL (79-100); MONO % 8 % (0-9); NEUT % 78 % (31-73); PLATELET COUNT 438 x10^3/uL (140-400); RED BLOOD COUNT 4.79 x10^6/uL (3.50-5.40); RED CELL DISTRIBUTION WIDTH 14.3 % (11.5-14.5); WHITE BLOOD COUNT 12.1 x10^3/uL (4.0-11.0)
[2017-07-01 13:08] LABS: ANION GAP 11 (6-14); BLOOD UREA NITROGEN 9 mg/dL (7-20); CALCIUM 8.4 mg/dL (8.5-10.1); CARBON DIOXIDE 26 mmol/L (21-32); CHLORIDE 104 mmol/L (98-107); CREATININE 0.9 mg/dL (0.6-1.0); GFR 84.8; GLUCOSE 93 mg/dL (70-99); POTASSIUM 3.6 mmol/L (3.5-5.1); SODIUM 141 mmol/L (136-145)
[2017-07-01 13:09] LABS: MAGNESIUM 1.9 mg/dL (1.8-2.4)
[2017-07-01 13:14] LABS: BILIRUBIN,URINE NEGATIVE (NEG); GLUCOSE,URINE NEGATIVE (NEG); NITRITE,URINE NEGATIVE (NEG); PH,URINE 5.5; PROTEIN,URINE NEGATIVE (NEG-TRACE)
[2017-07-01] MEDS: ONDANSETRON PF 4 MG/2 ML VIAL. IV (13:19)
[2017-07-01] MEDS: IV NORMAL SALINE 1000ML BAG 1,000 ML IV (13:19)
[2017-07-01 13:20] LABS: SQUAMOUS EPITHELIAL CELL,UR MANY /LPF
[2017-07-01] MEDS: fentaNYL PF VIAL 100 MCG/2 ML VIAL IV (13:20)
[2017-07-01] MEDS: ASA/APAP/CAFFEINE 250/250/65MG TABLET. PO (13:20)
[2017-07-01 13:21] LABS: BACTERIA,URINE MODERATE /HPF (0-FEW)
[2017-07-01 13:22] LABS: YEAST,URINE PRESENT /HPF
[2017-07-01] MEDS ORDERED: IV RINGERS,LACTATED 1000ML 1,000 ML IV (14:04)
[2017-07-01] MEDS ORDERED: ONDANSETRON PF 4 MG/2 ML VIAL. IV (14:15)
[2017-07-01] MEDS ORDERED: fentaNYL PF VIAL 100 MCG/2 ML VIAL IV ×2 (14:15)
[2017-07-01] MEDS ORDERED: LIDOCAINE 1% PF 2 ML VIAL. ID (14:15)
[2017-07-01] MEDS ORDERED: HYDROmorphone 2 MG/ML VIAL IV (14:15)
[2017-07-01] MEDS ORDERED: MORPHINE SULFATE 2 MG/ML DISP.SYRIN. IV (14:15)
[2017-07-01] MEDS ORDERED: PROCHLORPERAZINE 10 MG/2 ML VIAL. IV (14:15)
== END 2017-07-01 14:29 | disposition home or self-care (01) ==
LOC: ER 14:29
DX: G97.1 Other reaction to spinal and lumbar puncture (principal); N39.0 Urinary tract infection, site not specified
CPT/HCPCS: 36415; 80048; 81001; 81025; 83735; 85025; 87086; 96361; 96374; 96375; 99284-25; J2405; J3010; J7030

== ENCOUNTER → 2019-07-30 | Outpatient (CLI) | payer BC ==
[2017-07-01 13:30] VITALS: BP 121/78
[~2019-07-30] MED LIST: NITR100C62 PO
--- NOTE | 2019-07-30 17:42 | KCIC ---
Bilateral diagnostic digital mammograms: Reason for examination: Bilateral breast lumps with diffuse bilateral breast pain, left worse the past 6 months. Comparison is made to previous study dated 11/17/2015. Interpretation was made with the benefit of CAD. The skin and nipples show no abnormalities. No abnormal axillary lymph nodes are seen. The breast parenchyma is extremely dense. (Breast density: Category D.) There are no dominant masses, suspicious calcifications or architectural distortion. Impression: Extremely dense breast parenchyma. No evidence of malignancy. Ultrasound to follow. Your patient's mammogram demonstrates that she has dense breast tissue (breast density category C or D), which could hide abnormalities, and if she has other risk factors for breast cancer that have been identified, she might benefit from supplemental screening tests that may be suggested by you as her ordering physician. Dense breast tissue, in and of itself, is a relatively common condition. Therefore, this information is not provided to cause undue concern, but rather to raise your awareness and to promote discussion with your patient regarding the presence of other risk factors, in addition to dense breast tissue. Your patient's mammography results will be sent to her. BI-RAD Category 0: Incomplete. Needs additional imaging evaluation. Bilateral breast ultrasound: Bilateral whole breast ultrasound including evaluation of all 4 quadrants and the retroareolar and axillary regions of both breasts was performed. In the right breast there are several small hypoechoic nodules with benign fibrocystic appearances which are all subcentimeter in size. No suspicious-appearing nodules are seen. No abnormal appearing lymph nodes are seen in the axilla. In the left breast are also small hypoechoic nodules with benign fibrocystic appearances which are subcentimeter in size. There is also a hypoechoic circumscribed lesion in parallel orientation at 8:00 position 4 cm from the nipple measuring 1.2 cm in size consistent with fibroadenoma and a 7.5 mm hypoechoic lesion at the 9:00 position 4 cm from the nipple consistent with fibroadenoma. No suspicious-appearing lesions are seen. No abnormal appearing lymph nodes are seen in the axilla. IMPRESSION: Multiple benign-appearing subcentimeter fibrocystic type lesions bilaterally. Small 1.2 cm nodule probably representing a fibroadenoma at the 8:00 position of the left breast and a 7.5 mm hypoechoic nodule probably representing a fibroadenoma at the 9:00 position of the left breast. Recommend reevaluation with ultrasound bilaterally in 6 months. BI-RADS Category 3: Probably Benign. "Our facility is accredited by the [employer] Mammography [employer]." This patient's information has been entered into a reminder system for the patient to be notified with the results of her examination and a target date for the next mammogram. Electronically signed by: Pilar Hernandez MD (07/30/2019 5:39 PM) [id number]
== END | disposition home or self-care (01) ==
LOC: KCIC MAMMO 12:52
PROVIDERS: ATTEND Family Medicine
DX: R92.2 Inconclusive mammogram (principal); N60.12 Diffuse cystic mastopathy of left breast; N60.11 Diffuse cystic mastopathy of right breast
CPT/HCPCS: 76641; 77066

== ENCOUNTER → 2020-10-08 | Outpatient (CLI) | payer BC ==
[2017-07-01 13:30] VITALS: BP 121/78
--- NOTE | 2020-10-08 18:04 | RAD ---
Examination: 1. Bilateral digital diagnostic mammogram. 2. Limited bilateral breast ultrasound. INDICATION: 40-year-old woman with lateral right breast pain and delayed follow-up of probably benign sonographic findings in the left breast. She is due for screening. She reports a history of previous benign biopsies and family history of breast cancer in a paternal aunt in her 60s, and a maternal au nt in her 40s. COMPARISON: Bilateral digital diagnostic mammogram of 07/30/2019, and bilateral breast ultrasound of . TECHNIQUE AND FINDINGS: Extremely dense breast parenchyma. Right breast: Right mammogram shows focal asymmetry with possible architectural distortion in the medial middle thi rd right breast best appreciated on the CC tomographic image 27 of 53, and MLO tomographic image 27 o f 51. This appears to localize to the right 3:00 position between 3 and 5 cm from the nipple. Targeted ultrasound of the right breast focused in both the areas of patient's complaint of pain sixto g the lateral right breast as well as in the mammographic area of suspected distortion more medially showed numerous clusters of cysts in the lateral right breast, including a 1.3 cm apparent cluster of cysts at the 6 position 5.5 cm from the nipple. It also showed no definite sonographic correlate to the area questioned distortion in the medial right breast. It is possible this reflects scarring from patient's previous reported biopsy which could have been surgical since no biopsy marker is evident in either breast. Left breast: Left mammogram shows a waxing and waning pattern of nodularity compatible benign cystic change. No do minant mass, suspicious architectural distortion or suspicious calcifications are identified. Targeted ultrasound of the left breast in follow-up to the areas of sonographic interest at the 8:00 position 4 cm from the nipple and at the 9:00 position 4 cm from the nipple showed similar appearance to the 1.2 cm parallel orientation circumscribed mass compatible with a benign fibroadenoma and the 7.5 mm adjacent mass at the 9:00 position showing slightly obscured margins due to adjacent intramamm olinda fat. Both of these findings show no significant interval change in slightly over a year follow-up . Additional follow-up to complete 2 years of follow-up is recommended by ultrasound. A sonographical ly benign 2 cm bilobed cyst at the left 3:00 position 1 cm from the nipple is also evident. IMPRESSION: Probably benign findings in both breasts, representing possible surgical scarring in the medial right breast on 3-D mammography. No definite sonographic correlate clinically. Recommend a six-month follo w-up right 3D diagnostic mammogram with possible ultrasound. Any visible surgical scars on the right breast should be marked prior to image acquisition. Also recommend 6 month follow-up left diagnostic breast ultrasound targeting the 2 masses previously recommended for short-term follow-up at the 8 and 9:00 positions 4 cm from the nipple. At the discretion of the supervising radiologist at that time, a correlative diagnostic left mammogram could also be considered. BI-RADS Category 3 Probably benign findings Recommend right mammographic and left ultrasound follow-up in 6 months as discussed. Patient entered into a reminder system with targeted due date for next mammogram. Electronically signed by: Junior Simmons MD (10/08/2020 6:02 PM) [id number]
== END ==
LOC: MAMMO 12:20
PROVIDERS: ATTEND Family Medicine
DX: R92.2 Inconclusive mammogram (principal); N60.01 Solitary cyst of right breast
CPT/HCPCS: 76641; 77066; G0279; 77062